=== PATIENT | female | born 1945 | race Hispanic/Latino ===

== ENCOUNTER 2018-09-29 08:35 | Inpatient (IN) | payer MEDICARE ==
[~2018-09-29] VITALS: Ht 162.6 cm; Wt 108.4 kg
[2018-09-29] MEDS ORDERED: PIPER-TAZ 3.375 GM 50 ML IV ONE (09:15)
[2018-09-29] MEDS ORDERED: VANCOMYCIN 1GM/NS 250 ML 250 ML IV ONE (09:15)
[2018-09-29 09:44] LABS: BASOPHILS % 0.4 % (0.0-1.0); EOSINOPHILS # (AUTO) 0.3 (0.0-0.4); EOSINOPHILS % 3.8 % (0.0-6.0); HEMATOCRIT 37.9 % (34.2-44.1); HEMOGLOBIN 13.1 g/dL (12.0-16.0); LYMPHOCYTES # (AUTO) 1.8 (1.0-3.2); MEAN CORPUSCULAR HEMOGLOBIN 28.7 pg (28-32); MEAN CORPUSCULAR HGB CONC 34.6 g/dL (31-35); MEAN CORPUSCULAR VOLUME 83.1 fL (81-99); MONOCYTES # (AUTO) 0.7 (0.2-0.8); MONOCYTES % 9.2 % (4.4-11.3); NEUTROPHILS # (AUTO) 4.9 (2.1-6.9); NEUTROPHILS % 63.3 % (38.7-80.0); PLATELET COUNT 138 x10e3/uL (140-360); RED BLOOD COUNT 4.56 x10e6/uL (3.6-5.1); RED CELL DISTRIBUTION WIDTH 12.5 % (11.7-14.4)
[2018-09-29 09:48] LABS: INR 0.95; PROTHROMBIN TIME 13.2 seconds (11.9-14.5)
[2018-09-29 09:49] LABS: PARTIAL THROMBOPLASTIN TIME 30.2 seconds (23.8-35.5)
--- NOTE | 2018-09-29 09:58 | Diagnostic Imaging Report ---
EXAM: CHEST SINGLE (PORTABLE), AP Portable DATE: 09/29/2018 Time stamp on exam: 9:40 AM INDICATION: Diabetes with leg swelling COMPARISON: None FINDINGS: LINES/TUBES: None LUNGS: No consolidations or edema. PLEURA: No effusions or pneumothorax. HEART AND MEDIASTINUM: Normal size and contour. BONES AND SOFT TISSUES: No acute findings. IMPRESSION: No acute thoracic abnormality. Signed by: Dr. Jung Galdamez DO on 09/29/2018 9:55 AM
[2018-09-29 10:03] LABS: ALANINE AMINOTRANSFERASE 15 IU/L (0-55); ALBUMIN 3.8 g/dL (3.5-5.0); ALBUMIN/GLOBULIN RATIO 0.9 (0.8-2.0); ALKALINE PHOSPHATASE 89 IU/L (40-150); ANION GAP 12.7 mmol/L (8-16); BLOOD UREA NITROGEN 18 mg/dL (7-26); BUN/CREATININE RATIO 17 (6-25); CALCIUM 9.5 mg/dL (8.4-10.2); CARBON DIOXIDE 29 mmol/L (22-29); CHLORIDE 97 mmol/L (98-107); CREATINE KINASE 45 IU/L (29-168); CREATININE, SERUM 1.04 mg/dL (0.57-1.11); EST GLOMERULAR FILTRATION RATE 52 ML/MIN (60-); GLUCOSE 242 mg/dL (74-118); MAGNESIUM 2.3 MG/DL (1.3-2.1); POTASSIUM 3.7 mmol/L (3.5-5.1); SODIUM 135 mmol/L (136-145)
--- NOTE | 2018-09-29 10:04 | Diagnostic Imaging Report ---
Exam: Left tib-fib and foot series; 3 views each dated 09/29/2018 History: Swelling Comparison: None available Findings: Left tib-fib shows bony osteopenia. No fracture is identified. Soft tissue swelling and prominence is present. Benign-appearing distal tibial bone infarct is present. Left foot series shows diffuse bony osteopenia. Degenerative changes involving the calcaneus with spurring is present. There is partial talo-calcaneal fusion. Erosion of the distal first and second phalanx is present. Old fracture of the distal fourth metatarsal. Impression: Diffuse bony osteopenia with degenerative changes. Erosions of the distal phalanx of the first and second toes. Signed by: Dr. Jung Galdamez DO on 09/29/2018 10:01 AM
[2018-09-29] MEDS ORDERED: SODIUM CHLORIDE 0.9% 1000ML 1,000 ML IV ONE (10:45)
[2018-09-29] MEDS ORDERED: ONDANSETRON HCL INJ 2MG/ML 2ML 2 MG/ML VIAL IV PRN (10:45)
[2018-09-29] MEDS ORDERED: DEXTROSE 50% SYRINGE 50 ML IV PRN (10:45)
--- OUTSIDE RECORDS SUMMARY | 2018-09-29 10:48 | XMS REPORT ---
Author [facility] Address Unknown Phone Unavailable Care Team Providers Care [employer] Tech Name Role Phone Jose CONTRERAS Unavailable Unavailable Problems This patient has no known problems. Allergies, Adverse Reactions, Alerts This patient has no known allergies or adverse reactions. Medications This patient has no known medications. Results Test Description Test Time Test Comments Text Results Atomic Results Result Comments FOOT LEFT COMPLETE 2018-09-29 09:57:00 [place] [address] Patient Name: LINH ROWE MR #: [id number] : 1945 Age/Sex: 73/F Req #: [id number] Adm Physician: Ordered by: DEMETRIUS CONTRERAS MD Report #: [id number] Location: ER Room/Bed: Procedure: [id number] DX/FOOT LEFT COMPLETE Exam Date: 09/29/18 Exam Time: 0940 REPORT STATUS: Signed Exam: Left tib-fib and foot series; 3 views each dated 09/02 History: Swelling Comparison: None available Findings: Left tib-fib shows bony osteopenia. No fracture is identified. Soft tissue swelling and prominence is present. Benign-appearing distal tibial bone infarct is present. Left foot series shows diffuse bony osteopenia. Degenerative changes involving the calcaneus with spurring is present. There is partial talo-calcaneal fusion. Erosion of the distal first and second phalanx is present. Old fracture of the distal fourth metatarsal. Impression: Diffuse bony osteopenia with degenerative changes. Erosions of the distal phalanx of the first and second toes. Signed by: Dr. Belle Galdamez DO on 09/29/2018 10:01 AM Dictated By: BELLE GALDAMEZ DO 1001 Transcribed By: KANG on 09/29/18 1001 COPY TO: DEMETRIUS CONTRERAS MD LOWER LEG LEFT 2018-09-29 09:57:00 [place] [address] Patient Name: LINH ROWE MR #: [id number] : 1945 Age/Sex: 73/F Req #: [id number] Adm Physician: Ordered by: DEMETRIUS CONTRERAS MD Report #: [id number] Location: ER Room/Bed: Procedure: [id number] DX/LOWER LEG LEFT Exam Date: 09/29/18 Exam Time: 0940 REPORT STATUS: Signed Exam: Left tib-fib and foot series; 3 views each dated 09/30/19 History: Swelling Comparison: None available Findings: Left tib-fib shows bony osteopenia. No fracture is identified. Soft tissue swelling and prominence is present. Benign-appearing distal tibial bone infarct is present. Left foot series shows diffuse bony osteopenia. Degenerative changes involving the calcaneus with spurring is present. There is partial talo-calcaneal fusion. Erosion of the distal first and second phalanx is present. Old fracture of the distal fourth metatarsal. Impression: Diffuse bony osteopenia with degenerative changes. Erosions of the distal phalanx of the first and second toes. Signed by: Dr. Belle Galdamez DO on 09/29/2018 10:01 AM Dictated By: BELLE GALDAMEZ DO 100 Transcribed By: KANG on 09/29/18 100 COPY TO: DEMETRIUS CONTRERAS MD CHEST SINGLE (PORTABLE) 2018-09-29 09:54:00 [place] [address] Patient Name: LINH ROWE MR #: [id number] : 1945 Age/Sex: 73/F Req #: [id number] Adm Physician: Ordered by: DEMETRIUS CONTRERAS MD Report #: [id number] Location: ER Room/Bed: Procedure: [id number] DX/CHEST SINGLE (PORTABLE) Exam Date: 09/29/18 Exam Time: 939 REPORT STATUS: Signed EXAM: CHEST SINGLE (PORTABLE), AP Portable DATE: Time stamp on exam: 9:40 AM INDICATION: Diabetes with leg swelling COMPARISON: None FINDINGS: LINES/TUBES: None LUNGS: No consolidations or edema. PLEURA: No effusions or pneumothorax. HEART AND MEDIASTINUM: Normal size and contour. BONES AND SOFT TISSUES: No acute findings. IMPRESSION: No acute thoracic abnormality. Signed by: Dr. Belle Galdamez DO on 09/29/2018 9:55 AM Dictated By: BELLE GALDAMEZ DO 4 Transcribed By: KANG on 09/29/18954 COPY TO: DEMETRIUS CONTRERAS MD
[2018-09-29] MEDS ORDERED: TETANUS/DIPHTHERIA TOX ADULT 0.5 ML SYR IM ONE (11:00)
[2018-09-29 11:10] LABS: CLARITY,URINE CLEAR (CLEAR); COLOR,URINE YELLOW (YELLOW)
[2018-09-29 11:11] LABS: BILIRUBIN,URINE NEGATIVE (NEGATIVE); KETONES,URINE NEGATIVE (NEGATIVE); LEUKOCYTE ESTERASE ,URINE NEGATIVE (NEGATIVE); NITRITE,URINE NEGATIVE (NEGATIVE); PROTEIN,URINE DIPSTICK TRACE (NEGATIVE); URINE UROBILINOGEN 0.2 mg/dL (0.2 - 1)
[2018-09-29 11:41] LABS: BACTERIA,URINE RARE /HPF; EPITHELIAL CELLS,URINE RARE /LPF; RBC,URINE 0-5 /HPF (0-5)
[2018-09-29] MEDS ORDERED: LEVEMIR100 UNIT/1 SQ (12:31)
[2018-09-29] MEDS ORDERED: AMLODIPINE BESY10 MG PO (12:31)
[2018-09-29] MEDS ORDERED: COZAAR100 MG PO (12:31)
[2018-09-29] MEDS: INSULIN LISPRO 100 UNIT/1 ML 3ML VIAL SQ SCH ×3 (12:41→21:10)
[2018-09-29] MEDS: ENOXAPARIN SODIUM INJ 100 MG/ML SYR SC SCH ×2 (12:41→21:09)
[2018-09-29 14:05] VITALS: BP 146/66
--- NOTE | 2018-09-29 14:05 | NUR ---
RECEIVED PATIENT FROM ER AT 1353, SHE IS IN STABLE CONDITION. ADMISSION HX AND INITIAL PHYSICAL ASSESSMENT COMPLETED AND DOCUMENTED. PATIENT ORIENTED TO ROOM AND POLICIES. CALL LIGHT WITHIN REACH. BED IN THE LOWEST POSITION.
[2018-09-29 14:11] VITALS: BP 146/66
[2018-09-29 14:20] VITALS: BP 146/66
--- NOTE | 2018-09-29 14:27 | NUR ---
H&P cc: leg swelling and pain HPI: 73yoF, PCP , developed left leg swelling and pain. PMH: DM2, HTN, PAD s/p stent to right leg s/p right BKA, PSHx: right leg stent, right BKA, csec x3; cholecystectomy, hysterectomy Allergies; see emr FH/SH: single; no etoh/cigs/illicits MEd;s see MAR ROS: no cp/sob/dizziness/vision changes/skin rash/back pain/GARBER v/s: rev'd PE: tired appearing anicteric ns1s2 mod bs soft nt nd right BKA left foreleg erythematous/edematous/tender/warm; chronic changes of great toe skin dry flat affect A&OX3; whitaker labs/meds; revd A/P: 73yoF Cellulitis of left leg DM2 HTN PAD PLAN IV abx U/S of leg lovenox cardio eval hab1c/LDL 10.3/129 ADA diet ppi on AC Miguel Giron MD, PhD
--- NOTE | 2018-09-29 14:30 | NUR ---
DR. RICE ROUNDING ON PATIENT. PER MD DON'T GIVE FLUID ORDER DUE TO PATIENT HAVING LLE +4 EDEMA.
[2018-09-29] MEDS ORDERED: PNEUMOCOCCAL VACCINE POLYVALENT 23 MCG/0.5 ML VIAL IM SCH (14:41)
[2018-09-29] MEDS ORDERED: SODIUM CHLORIDE 0.9% 250ML 250 ML ONE (15:23)
[2018-09-29] MEDS: PIPER-TAZ 3.375 GM 50 ML IV SCH ×2 (15:38→21:09)
[2018-09-29] MEDS: ACETAMINOPHEN 325 MG TAB PO PRN (15:38)
[2018-09-29 15:56] VITALS: BP 142/63
--- NOTE | 2018-09-29 19:28 | NUR ---
REPORT GIVEN TO ONCOMING NURSE, WALKING ROUNDS DONE. PATIENT IS IN STABLE CONDITION, NO ACUTE DISTRESS NOTED. CALL LIGHT WITHIN REACH. BED IN THE LOWEST POSITION.
--- NOTE | 2018-09-29 19:48 | NUR ---
PT IS RESTING IN BED. NO RESPIRATORY DISTRESS NOTED. BED IN THE LOWEST POSITION, LOCKED, AND CALL LIGHT WITHIN REACH. WILL CONTINUE TO MONITOR.
[2018-09-29 20:00] VITALS: BP 143/60
[2018-09-29] MEDS ORDERED: PNEUMOCOCCAL VACCINE POLYVALENT 23 MCG/0.5 ML VIAL IM NR (20:00)
[2018-09-29] MEDS ORDERED: VANCOMYCIN 750MG/NS 150ML IVPB 150 ML IV SCH (21:00)
[2018-09-30] VITALS (9 sets, daily range): BP systolic 140–170; BP diastolic 55–73
[2018-09-30] MEDS: PIPER-TAZ 3.375 GM 50 ML IV SCH ×4 (02:28→21:55)
--- NOTE | 2018-09-30 07:06 | NUR ---
RECEIVED PATIENT RESTING IN BED. NO ACUTE DISTRESS NOTED. NO S/S OF PAIN NOTED. CALL LIGHT WITHIN REACH. BED IN THE LOWEST POSITION.
[2018-09-30 07:09] LABS: BASOPHILS % 0.7 % (0.0-1.0); EOSINOPHILS # (AUTO) 0.4 (0.0-0.4); EOSINOPHILS % 7.5 % (0.0-6.0); HEMATOCRIT 34.7 % (34.2-44.1); HEMOGLOBIN 11.3 g/dL (12.0-16.0); LYMPHOCYTES # (AUTO) 1.4 (1.0-3.2); LYMPHOCYTES % 25.2 % (18.0-39.1); MEAN CORPUSCULAR HEMOGLOBIN 27.9 pg (28-32); MEAN CORPUSCULAR HGB CONC 32.6 g/dL (31-35); MEAN CORPUSCULAR VOLUME 85.7 fL (81-99); MONOCYTES # (AUTO) 0.7 (0.2-0.8); MONOCYTES % 12.7 % (4.4-11.3); NEUTROPHILS % 53.5 % (38.7-80.0); PLATELET COUNT 125 x10e3/uL (140-360); RED BLOOD COUNT 4.05 x10e6/uL (3.6-5.1); RED CELL DISTRIBUTION WIDTH 12.7 % (11.7-14.4)
[2018-09-30 07:29] LABS: ALBUMIN 2.9 g/dL (3.5-5.0); ALBUMIN/GLOBULIN RATIO 0.8 (0.8-2.0); ANION GAP 11.4 mmol/L (8-16); CALCIUM 8.5 mg/dL (8.4-10.2); CREATININE, SERUM 1.14 mg/dL (0.57-1.11); POTASSIUM 3.4 mmol/L (3.5-5.1)
--- NOTE | 2018-09-30 07:37 | NUR ---
IM- Progress note o/N no events ROS: no cp/sob/dizziness/vision changes/skin rash/back pain/GARBER v/s: rev'd PE: tired appearing anicteric ns1s2 mod bs soft nt nd right BKA left foreleg erythematous/edematous/tender/warm; chronic changes of great toe skin dry flat affect A&OX3; whitaker labs/meds; revd A/P: 73yoF Cellulitis of left leg DM2 HTN PAD PLAN IV abx U/S of leg lovenox cardio eval hab1c/LDL 10.3/129 ADA diet ppi on AC 09/30 Uncontrolled DM2; CLEMENTINA - d/c losartan; and Hypokalemia- replace; ; Obesity BMI 35.4 Miguel Giron MD, PhD
[2018-09-30] MEDS ORDERED: POTASSIUM CHLORIDE 20 MEQ TAB CR PO NR (08:00)
[2018-09-30] MEDS: INSULIN GLARGINE 100 UNITS/ML VIAL SQ SCH (08:02)
[2018-09-30] MEDS: INSULIN LISPRO 100 UNIT/1 ML 3ML VIAL SQ SCH ×4 (08:04→21:00)
[2018-09-30] MEDS: ENOXAPARIN SODIUM INJ 100 MG/ML SYR SC SCH ×2 (08:09→21:55)
[2018-09-30] MEDS: AMLODIPINE BESYLATE 10 MG TAB PO SCH (08:09)
[2018-09-30] MEDS ORDERED: LOSARTAN POTASSIUM 100 MG TAB PO SCH (09:00)
[2018-09-30] MEDS ORDERED: PNEUMOCOCCAL VACCINE POLYVALENT 23 MCG/0.5 ML VIAL IM NR (09:00)
--- NOTE | 2018-09-30 14:33 | NUR ---
WOUND CARE CONSULTATION - INITIAL EVALUATION Patient admitted from home to ER for cellulitis of LLE with onset of Swelling, Redness. WBC5.6 HGB11.3 HCT34.7 NEUT%53.5 HJY864 FyT5u44.3 Alb 2.9 LLE Venous Study - Left Popliteal - Totally Occluded - Left Common Femoral - Totally Occluded - Left Great Saphenous Vein Upper Leg - Totally Occluded - Left Femoral Vein - Totally Occluded. Left Foot X-Ray - - Diffuse Osteopenia with degenerative changes. Erosion of 1st & 2nd Toes. WC Consulted for Evaluation of LLE Ulcers and Recommendation PATIENT VISIT: Patient Calm and Cooperative, In good Spirits, AAOX4. Right BKA- Stable/ Healed incision. No Edema to RLE. LLE Anterior -multiple open ulcers over area of 15cm x 10cm weeping serous fluid moderate. Edema to LLE +4, shiny, taught and reddened. Left Hallux - DFU grade 1- stable scarring. No drainage, no redness, Stable and open to air. Nakul Score 18 Moderate PUP Active Uses Prosthesis to GOOB. Left Foot Heel Protector in place. Dr. Jon in to see patient and explained procedure to patient for vascular workup. Patient agreeable to procedure. IMPRESSION: 1. Left Lower Leg - Venous Stasis Ulcers. 2. Left Foot Hallux - DFU grade 1- Stable RECOMMENDATION: ( Patient awaiting vascular workup for total occlusion DVT of LLE) Conservative: 1. Left Lower Leg - Venous Stasis Ulcers - - Cleanse area with Hibiclens Soap and Normal Saline with 4x4 gauze then Pat Dry Thoroughly - Apply Xeroform Single Layer and Cover with ABD pad and secure with Kerlix Daily. 2. Continue Moderate PUP Protocol. 3. Continue alternating Pressure air Mattress and set to patient current weight 4. Continue Left Foot Heel Protector while in bed. 5. Encourage Patient to turn and reposition every 2 hours. Addendum: 09/30/18 at 1451 by Jonny Pisano RN Amended: Links added.
[2018-09-30] MEDS: DOCUSATE SODIUM 100 MG CAP PO SCH (16:21)
[2018-09-30] MEDS: SENNA-S TABLET PO SCH (16:21)
--- NOTE | 2018-09-30 17:11 | NUR ---
PATIENT REQUESTING ENEMA, PER DR. RICE ORDER SOAP SUDS ENEMA. PER PATIENT SHE WILL LIKE TO GET IT BEFORE BEDTIME TONIGHT.
--- NOTE | 2018-09-30 19:25 | NUR ---
REPORT GIVEN TO ONCOMING NURSE. PATIENT IS IN RESTING IN BED. NO ACUTE DISTRESS NOTED. NO S/S OF PAIN NOTED. CALL LIGHT WITHIN REACH. BED IN THE LOWEST POSITION.
--- NOTE | 2018-09-30 19:54 | NUR ---
PT IS RESTING IN BED. NO RESPIRATORY DISTRESS NOTED. BED IN THE LOWEST POSITION, LOCKED, AND CALL LIGHT WITHIN REACH. WILL CONTINUE TO MONITOR.
[2018-09-30] MEDS: VANCOMYCIN 750MG/NS 150ML IVPB 150 ML IV SCH (21:00)
[2018-10-01] VITALS (22 sets, daily range): BP systolic 87–173; BP diastolic 31–78
--- NOTE | 2018-10-01 01:01 | Consultation ---
DATE OF CONSULTATION: 09/30/2018 Cardiology consultation. REASON FOR CONSULTATION: DVT. HISTORY OF PRESENT ILLNESS: This is a 73-year-old woman with a history of peripheral arterial disease, status post multiple interventions leading to a right jybpz-oxg-fznp amputation, hypertension, diabetes mellitus, hyperlipidemia, who presented to the emergency department with lower extremity swelling, wound with weeping sores. Vascular ultrasound showed extensive deep venous thrombosis. We have been consulted. REVIEW OF SYSTEMS: A 12-point review of system was conducted, is negative otherwise as stated above in the HPI. PAST MEDICAL HISTORY: As stated above in the HPI. PAST SURGICAL HISTORY: Right BKA. FAMILY HISTORY: No premature coronary artery disease or sudden cardiac . SOCIAL HISTORY: No illicit drug, alcohol, or tobacco use. ALLERGIES: NO KNOWN DRUG ALLERGIES. MEDICATIONS: See medications reconciliation form. PHYSICAL EXAMINATION: VITAL SIGNS: Temperature is 98.3, heart rate is 75, respirations 18, blood pressure is 140/65, and oxygen saturation 100% on room air. GENERAL: Well-appearing, well-built, no apparent distress. Alert and oriented x3. HEAD: Normocephalic, atraumatic. EYES: Extraocular muscles are intact. Conjunctivae are clear. NECK: No JVD. No bruits. CARDIOVASCULAR: Regular rate and rhythm. No murmurs. LUNGS: Clear to auscultation bilaterally. No wheezing or rales. ABDOMEN: Soft, nontender, and nondistended. EXTREMITIES: Right BKA. Left extremity has weeping sores. 3+ edema. LABORATORY DATA: Reviewed. Cardiovascular medications are reviewed. She is on Lovenox 90 mg q.12 hours. IMPRESSION: 1. Extensive deep venous thrombosis of the left lower extremity. 2. Left lower extremity wound. 3. Hyperlipidemia. 4. Hypertension. 5. Diabetes mellitus. 6. Peripheral arterial disease, status post right occlg-qlp-tdmq amputation. RECOMMENDATIONS: The patient has one remaining limb, left lower extremity. She has extensive deep venous thrombosis with extensive edema and wounds. Continue anticoagulation. I feel the patient will benefit from venography and possible intervention to restore outflow from the left lower extremity. Please keep the patient n.p.o. after midnight for possible intervention tomorrow. DO IVONNE Lawler/MODL /[id number]
[2018-10-01] MEDS: HYDROCODONE/APAP 7.5MG-325MG 1 EA TAB PO PRN ×2 (02:19→17:30)
[2018-10-01] MEDS: PIPER-TAZ 3.375 GM 50 ML IV SCH ×4 (03:48→20:33)
--- NOTE | 2018-10-01 06:43 | NUR ---
PT IS RESTING IN BED. NO RESPIRATORY DISTRESS NOTED. NO ACUTE EVENT OCCURRED THROUGHOUT THE NIGHT. BED IN THE LOWEST POSITION, LOCKED, AND CALL LIGHT WITHIN REACH. REPORT GIVEN TO ONCOMING NURSE.
[2018-10-01] MEDS: INSULIN LISPRO 100 UNIT/1 ML 3ML VIAL SQ SCH ×4 (07:30→21:00)
--- NOTE | 2018-10-01 08:02 | NUR ---
IM- Progress note o/N no events ROS: no cp/sob/dizziness/vision changes/skin rash/back pain/GARBER v/s: rev'd PE: tired appearing anicteric ns1s2 mod bs soft nt nd right BKA left foreleg erythematous/edematous/tender/warm; chronic changes of great toe skin dry flat affect A&OX3; whitakre labs/meds; revd A/P: 73yoF Cellulitis of left leg DM2 HTN PAD PLAN IV abx U/S of leg lovenox cardio eval hab1c/LDL 10.3/129 ADA diet ppi on AC 09/30 Uncontrolled DM2; CLEMENTINA - d/c losartan; and Hypokalemia- replace; ; Obesity BMI 35.4 10/01 f/u vascular studies; check BMP Miguel Giron MD, PhD
[2018-10-01] MEDS: SENNA-S TABLET PO SCH ×2 (09:00→16:32)
[2018-10-01] MEDS: DOCUSATE SODIUM 100 MG CAP PO SCH ×2 (09:00→16:32)
[2018-10-01] MEDS: ENOXAPARIN SODIUM INJ 100 MG/ML SYR SC SCH ×2 (09:00→20:33)
[2018-10-01] MEDS: INSULIN GLARGINE 100 UNITS/ML VIAL SQ SCH (09:00)
[2018-10-01] MEDS: AMLODIPINE BESYLATE 10 MG TAB PO SCH (09:00)
--- NOTE | 2018-10-01 09:00 | NUR ---
Held wound treatment patient awaiting procedure.
[2018-10-01 10:28] LABS: ANION GAP 11.7 mmol/L (8-16); BLOOD UREA NITROGEN 13 mg/dL (7-26); BUN/CREATININE RATIO 15 (6-25); CARBON DIOXIDE 27 mmol/L (22-29); CHLORIDE 100 mmol/L (98-107); CREATININE, SERUM 0.87 mg/dL (0.57-1.11); EST GLOMERULAR FILTRATION RATE > 60 ML/MIN (60-); GLUCOSE 208 mg/dL (74-118); POTASSIUM 3.7 mmol/L (3.5-5.1); SODIUM 135 mmol/L (136-145)
--- NOTE | 2018-10-01 10:36 | NUR ---
Spoke with Dr. Fina Jon made aware of patient's blood pressure 160/58 HR69, received orders to continue holding Po blood pressure medications, since she she will be under sedation for procedure, no IV blood pressure medications ordered
[2018-10-01] MEDS ORDERED: IOPAMIDOL 300MG/ML 100 ML INFUS..BTL IV ONE (11:37)
[2018-10-01] MEDS ORDERED: SODIUM CHLORIDE 0.9% 1000ML 1,000 ML ONE (11:37)
[2018-10-01] MEDS ORDERED: LIDOCAINE HCL 2% LOCAL 20 ML VIAL ONE ×2 (11:37→13:00)
[2018-10-01] MEDS ORDERED: FENTANYL CITRATE/PF 100MCG/2 ML INJ ONE (11:37)
[2018-10-01] MEDS ORDERED: MIDAZOLAM HCL 2 MG/2 ML VIAL ONE (11:37)
[2018-10-01] MEDS ORDERED: HEPARIN SOD/SOD CHLORIDE 2,000 ML ONE (11:37)
[2018-10-01] MEDS ORDERED: ALTEPLASE RECOMBINANT 2 MG/2 ML VIAL ONE (13:27)
[2018-10-01] MEDS ORDERED: HEPARIN 25,000U/0.45% NS 250ML 250 ML IV ONE (13:28)
[2018-10-01] MEDS ORDERED: SODIUM CHLORIDE 0.9% 50ML 0 ML ONE (13:35)
[2018-10-01] MEDS: HEPARIN 25,000 UNIT/D5W 250ML 250 ML IV SCH (13:45)
[2018-10-01] MEDS: ALTEPLASE RECOMBINANT IV SCH ×3 (14:00→22:01)
[2018-10-01] MEDS: SODIUM CHLORIDE 0.9% IV SCH ×3 (14:00→22:01)
--- NOTE | 2018-10-01 14:16 | NUR ---
1416 Received pt form label pinker Rm #[id number] (from rm #[id number])Handoff Higinio MATHEWS .Left leg with 7fr cath placed per DR Jon for thrombolysis via infusion TPA at 17cchr and Heparin 500cc/hr. Left 18g iv clamped. Site w/o s/s infiltration. No signs of gross pain,pallor or dysrhythmia. Left foot with DP/PT Doppler only. Rt BKA intact. Baum in place for clear urine to BSD approx 250cc in bag. Abd soft and non tender denies necessity to defecate . 1500 phone verbal report to Shawn Sylvester RN assist with zoll transport and bed to ICU stable vs denies c/o except hungry. PO H20 tolerated well. Handoff face to face included review of orders and to return to label pinker tomorrow afternoon for fix in label pinker Iv drips to continue continuously. Left to ICU bedside care NO gross signs of pain,pallor,bleeding in NSR. Bed in low position,side rails up, call light at bedside with brakes on bed and Ekg with sat monitoring placed by ICU staff. maricarmen/rn
--- NOTE | 2018-10-01 15:58 | NUR ---
Bedside handoff report to nurse Lashae RN made aware unable to change dressing to left calf due to surgical procedure.
[2018-10-01] MEDS: VANCOMYCIN 750MG/NS 150ML IVPB 150 ML IV SCH (20:33)
[2018-10-01 21:12] LABS: PARTIAL THROMBOPLASTIN TIME 54.5 seconds (23.8-35.5)
--- NOTE | 2018-10-01 21:51 | Progress Note ---
DATE: 10/01/2018 Cardiology Progress Note SUBJECTIVE: The patient is feeling overall somewhat better. Reports left lower extremity pain. OBJECTIVE: VITAL SIGNS: Temperature is 96.3, heart rate is 75, respirations 17, blood pressure is 136/71, and oxygen saturation 96% on room air. GENERAL: Well-appearing, well-built, in no apparent distress. CARDIOVASCULAR: Regular rate and rhythm. LUNGS: Clear to auscultation. ABDOMEN: Soft and nontender. EXTREMITIES: Right BKA, left has significant swelling. CARDIOVASCULAR MEDICATIONS: Reviewed. LABORATORY DATA: Reviewed. Venography today revealed significant thrombus burden seen throughout the femoral and iliac venous systems of the left lower extremity. IMPRESSION: 1. Extensive left lower extremity deep venous thrombosis involving the femoral and iliac vessels. 2. Left lower extremity wound. 3. Hyperlipidemia. 4. Hypertension. 5. Obesity. 6. Diabetes mellitus. 7. Peripheral arterial disease, status post right ecjlj-jcl-axuz amputation. RECOMMENDATIONS: Venography today revealed significant thrombus burden throughout the femoral and iliac vessels. I placed a 40 cm working length Satinder infusion catheter. She will undergo alteplase infusion at 1 mg/hour until tomorrow afternoon. She also received heparin at 500 units per the sheath. Continue to hold Lovenox for now. DO IVONNE Lawlre/MODL /[id number]
[2018-10-02] VITALS (25 sets, daily range): BP systolic 105–152; BP diastolic 33–89
[2018-10-02 00:36] LABS: PARTIAL THROMBOPLASTIN TIME 95.9 seconds (23.8-35.5)
--- NOTE | 2018-10-02 01:33 | Operative Report ---
DATE OF PROCEDURE: 10/01/2018 SURGEON: Ignacio Jon DO PROCEDURES PERFORMED: 1. Ultrasound-guided popliteal venous access. 2. Second order catheter placement and venography. 3. Transcatheter lysis. 4. Conscious sedation, 30 minutes. PREPROCEDURE DIAGNOSIS: Deep venous thrombosis. POSTPROCEDURE DIAGNOSIS: Deep venous thrombosis. ESTIMATED BLOOD LOSS: Less than 20 mL. SPECIMENS REMOVED: None. PROCEDURE IN DETAIL: After informed consent was obtained, the patient was brought to the cardiac catheterization laboratory in a fasting and nonsedated state. The patient was placed prone on the laboratory technology teacher table. The left popliteal area was prepped and draped in the usual sterile fashion. A 2% lidocaine was infiltrated over the left popliteal area for local anesthesia. Using ultrasound guidance, the popliteal vein was entered with a micropuncture catheter and a 7-Armenian sheath was placed. Next, utilizing a multipurpose catheter, an Advantage wire was taken into the inferior vena cava. This catheter was then advanced into the inferior vena cava and venography was performed. Next, the wire was reinserted and I placed a 40 cm working catheter and infused 2 mg of alteplase within the laboratory technology teacher. Venography prior to this through the sheath showed extensive thrombus burden throughout the femoral and iliac vessels. IMPRESSION: Extensive deep venous thrombosis. RECOMMENDATIONS: Continue alteplase at 1 mg/hour throughout the night until tomorrow afternoon. A 500 units of heparin through the sheath. We will bring her back to the cardiac catheterization laboratory for reimaging. Ignacio Jon DO BM/MODL /[id number]
[2018-10-02] MEDS: ALTEPLASE RECOMBINANT IV SCH ×3 (04:01→18:00)
[2018-10-02] MEDS: PIPER-TAZ 3.375 GM 50 ML IV SCH ×4 (04:01→21:30)
[2018-10-02] MEDS: SODIUM CHLORIDE 0.9% IV SCH ×3 (04:01→18:00)
[2018-10-02 05:03] LABS: PARTIAL THROMBOPLASTIN TIME 92.3 seconds (23.8-35.5)
--- NOTE | 2018-10-02 05:50 | NUR ---
IM- Progress note o/N no events ROS: no cp/sob/dizziness/vision changes/skin rash/back pain/GARBER v/s: rev'd PE: tired appearing anicteric ns1s2 mod bs soft nt nd right BKA left foreleg erythematous/edematous/tender/warm; chronic changes of great toe skin dry flat affect A&OX3; whitaker labs/meds; revd A/P: 73yoF Cellulitis of left leg DM2 HTN PAD PLAN IV abx U/S of leg lovenox cardio eval hab1c/LDL 10.3/129 ADA diet ppi on AC 09/30 Uncontrolled DM2; CLEMENTINA - d/c losartan; and Hypokalemia- replace; ; Obesity BMI 35.4 5/ f/u vascular studies; check BMP 5/ s/p venogram; alteplase/heparin infusion; heavy load left leg thrombus. 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 Miguel Giron MD, PhD
--- NOTE | 2018-10-02 06:15 | NUR ---
Dr Giron here for morning rounds, no new orders received
[2018-10-02] MEDS: INSULIN LISPRO 100 UNIT/1 ML 3ML VIAL SQ SCH ×4 (07:56→21:00)
[2018-10-02] MEDS: ENOXAPARIN SODIUM INJ 100 MG/ML SYR SC SCH ×2 (08:01→21:30)
[2018-10-02] MEDS: SENNA-S TABLET PO SCH ×2 (08:01→17:00)
[2018-10-02] MEDS: DOCUSATE SODIUM 100 MG CAP PO SCH ×2 (08:01→17:00)
[2018-10-02] MEDS: AMLODIPINE BESYLATE 10 MG TAB PO SCH (08:01)
[2018-10-02] MEDS: INSULIN GLARGINE 100 UNITS/ML VIAL SQ SCH (08:02)
[2018-10-02] MEDS: HYDROCODONE/APAP 7.5MG-325MG 1 EA TAB PO PRN ×2 (11:35→21:33)
[2018-10-02] MEDS: HEPARIN 25,000 UNIT/D5W 250ML 250 ML IV SCH (13:45)
[2018-10-02] MEDS ORDERED: MIDAZOLAM HCL 2 MG/2 ML VIAL ONE ×2 (17:36→19:14)
[2018-10-02] MEDS ORDERED: HEPARIN SOD (PORCINE) 1000 UNIT/ML 30ML ONE (17:36)
[2018-10-02] MEDS ORDERED: ALTEPLASE RECOMBINANT 2 MG/2 ML VIAL ONE (17:37)
[2018-10-02] MEDS ORDERED: FENTANYL CITRATE/PF 100MCG/2 ML INJ ONE (17:37)
[2018-10-02] MEDS ORDERED: SODIUM CHLORIDE 0.9% 100 ML 0 ML ONE (17:37)
[2018-10-02] MEDS ORDERED: HEPARIN SOD/SOD CHLORIDE 1,000 ML ONE ×2 (17:39→18:40)
[2018-10-02] MEDS ORDERED: SODIUM CHLORIDE 0.9% 1000ML 1,000 ML ONE (17:39)
[2018-10-02] MEDS ORDERED: LIDOCAINE HCL 2% LOCAL 20 ML VIAL ONE ×2 (17:39→18:40)
[2018-10-02] MEDS ORDERED: IOPAMIDOL 300MG/ML 100 ML INFUS..BTL IV ONE (17:40)
--- NOTE | 2018-10-02 19:45 | NUR ---
Report provided to Pamella MATHEWS, review of procedural findings and medications given. Patient drowsy, easily aroused. maintains airway and room air saturations of 98-99%. No gross issues of pressure, pain, pallor or dysrhythmia. IV site patent with saline lock to left AC. patient hemodynamically stable with hemostasis. right neck dressing CDI w/o s/s of bleeding. patient transferred to bed max assist w/o incident. Overall skin integrity remains intact. sheath to left posterior popliteal transported to ICU 190 - cgf procedure: SP removal of mcnamare catheter, IVC venous angiography, right IJ IVC filter placement Sheath puller: Dr Jon Meds Given Intra-Procedure Sedatives Versed - 3 mg Fentanyl - 75 mcg Anticoagulants TPA /HEPARIN DC'd at beginning of procedure Fluids Input - 250ml Output (klein) - 150 Contrast Isovue 300 - [id number] Other Meds NA
--- NOTE | 2018-10-02 19:58 | NUR ---
Received from laborer hoisting via bed, AAOx3, no c/o pain. Sheathe remains in place to left polpliteal area.
--- NOTE | 2018-10-02 20:15 | NUR ---
Call placed for Dr. Jon to clarify status of left polpliteal sheathe, spoke with Dr. Almeida. He will contact Dr. Jon and then contact us with orders
--- NOTE | 2018-10-02 20:37 | Operative Report ---
DATE OF PROCEDURE: 10/02/2018 SURGEON: Ignacio Jon DO PROCEDURES PERFORMED: 1. Conscious sedation, 1 hour. 2. Second order catheter placement and venography of the left lower extremity. 3. Ultrasound-guided inferior vena cava filter placement from the right internal jugular approach. PREPROCEDURE DIAGNOSIS: Extensive left lower extremity deep venous thrombosis. POSTPROCEDURE DIAGNOSIS: Extensive left lower extremity deep venous thrombosis. ESTIMATED BLOOD LOSS: Less than 20 mL. SPECIMENS REMOVED: None. PROCEDURE IN DETAIL: After informed consent was obtained, the patient was brought to the cardiac catheterization laboratory in a fasting and nonsedated state. The patient was placed prone on the table. Her previous left popliteal sheath was exchanged out for a new 7-Senegalese sheath. Venography revealed significant improvement of her thrombus burden throughout the femoral and iliac systems. A catheter was taken up and over the second order position and venography revealed a large globular thrombus that appeared to be well organized at the left common iliac vein prior to the flow into the inferior vena cava. This was extensive and almost occluding the iliac vein. Decision was made to not intervene on this due to high risk of embolization and causing a pulmonary embolism. Next, we flipped the patient over and the right neck was prepped and draped in the usual fashion. A 2% lidocaine was instilled over the right anterior neck for local anesthesia. Using ultrasound guidance, the right internal jugular vein was accessed via modified Seldinger technique using a micropuncture kit and placement of a 5-Senegalese sheath. Next, a multipurpose catheter and Advantage wire were used to navigate and insert the Advantage wire into the inferior vena cava distally. Next, [place] inferior vena cava sheath was placed in the infrarenal position and venography images were performed. The renal veins were delineated. [place] IVC filter was deployed in the usual manner. Sheath was removed and hemostasis was achieved via manual pressure. The patient tolerated the procedure well with no immediate complications and transported back to room in stable condition. IMPRESSION: 1. Improvement of the left lower extremity thrombus burden throughout the femoral and iliac system. 2. Extensive organized thrombus at the ostium of the left iliac vein. RECOMMENDATIONS: The patient underwent IVC filter placement to prevent embolism of the large organized thrombus in the left common iliac ostium. The patient will need to be brought back at a later time for potential Angiojet mechanical thrombectomy versus venoplasty. Continue anticoagulation. DO IVONNE Lawler/STEVE /[id number]
[2018-10-02] MEDS: VANCOMYCIN 750MG/NS 150ML IVPB 150 ML IV SCH (21:30)
--- NOTE | 2018-10-02 21:40 | NUR ---
no return call from Dr. Almeida, 2nd call placed and message left to clarify status of left popliteal sheathe and diet orders
[2018-10-03] VITALS (20 sets, daily range): BP systolic 118–157; BP diastolic 40–53
[2018-10-03] MEDS: PIPER-TAZ 3.375 GM 50 ML IV SCH ×4 (03:30→21:00)
--- NOTE | 2018-10-03 06:34 | NUR ---
IM- Progress note o/N no events ROS: no cp/sob/dizziness/vision changes/skin rash/back pain/GARBER v/s: rev'd PE: tired appearing anicteric ns1s2 mod bs soft nt nd right BKA left foreleg erythematous/edematous/tender/warm; chronic changes of great toe skin dry flat affect A&OX3; whitaker labs/meds; revd A/P: 73yoF Cellulitis of left leg DM2 HTN PAD PLAN IV abx U/S of leg lovenox cardio eval hab1c/LDL 10.3/129 ADA diet ppi on AC 09/30 Uncontrolled DM2; CLEMENTINA - d/c losartan; and Hypokalemia- replace; ; Obesity BMI 35.4 5/ f/u vascular studies; check BMP 5/ s/p venogram; alteplase/heparin infusion; heavy load left leg thrombus. 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 Miguel Giron MD, PhD
[2018-10-03] MEDS: INSULIN LISPRO 100 UNIT/1 ML 3ML VIAL SQ SCH ×4 (07:30→21:00)
--- NOTE | 2018-10-03 08:00 | NUR ---
[address]AGE ON WITH DR KAUR REGARDING VENOUS SHEATH IN PLACE ON LEFT POPITEAL AND AN ORDER FOR DIET.
[2018-10-03] MEDS: DOCUSATE SODIUM 100 MG CAP PO SCH ×2 (08:59→19:01)
[2018-10-03] MEDS: AMLODIPINE BESYLATE 10 MG TAB PO SCH (08:59)
[2018-10-03] MEDS: ENOXAPARIN SODIUM INJ 100 MG/ML SYR SC SCH ×2 (08:59→21:00)
[2018-10-03] MEDS: SENNA-S TABLET PO SCH ×2 (08:59→17:00)
[2018-10-03] MEDS: HYDROCODONE/APAP 7.5MG-325MG 1 EA TAB PO PRN ×2 (09:01→19:07)
[2018-10-03] MEDS: INSULIN GLARGINE 100 UNITS/ML VIAL SQ SCH (09:06)
--- NOTE | 2018-10-03 14:02 | NUR ---
SPOKE WITH DR KAUR REGARDING PLAN OF CARE. HE WILL BE TAKING PATIENT BACK TO SCREEN PRINTING INSPECTOR FOR PROCEDURE. TELEPHONE ORDER FOR CONSENT AND KEEP NPO. EXPLAINED TO PATIENT POC AND SHE REFUSES TO SIGN CONSENT UNTIL SHE SPEAKS WITH INJECTION MOLDING MACHINE OFFBEARER.
[2018-10-03] MEDS ORDERED: HEPARIN SOD (PORCINE) 1000 UNIT/ML 30ML ONE (15:49)
[2018-10-03] MEDS ORDERED: MIDAZOLAM HCL 2 MG/2 ML VIAL ONE (15:50)
[2018-10-03] MEDS ORDERED: ALTEPLASE RECOMBINANT 2 MG/2 ML VIAL ONE (15:50)
[2018-10-03] MEDS ORDERED: SODIUM CHLORIDE 0.9% 100 ML 100 ML ONE (15:50)
[2018-10-03] MEDS ORDERED: FENTANYL CITRATE/PF 100MCG/2 ML INJ ONE (15:50)
[2018-10-03] MEDS ORDERED: IOPAMIDOL 300MG/ML 100 ML INFUS..BTL IV ONE (15:51)
[2018-10-03] MEDS ORDERED: LIDOCAINE HCL 2% LOCAL 20 ML VIAL ONE (15:51)
[2018-10-03] MEDS ORDERED: HEPARIN SOD/SOD CHLORIDE 2,000 ML ONE (15:51)
[2018-10-03] MEDS ORDERED: SODIUM CHLORIDE 0.9% 1000ML 2,000 ML ONE (15:51)
[2018-10-03] MEDS ORDERED: ATROPINE SULFATE 0.1 MG/ML 10ML SYR ONE (17:25)
[2018-10-03] MEDS ORDERED: ALTEPLASE RECOMBINANT 2 MG/2 ML VIAL IV ONE (17:25)
[2018-10-03] MEDS ORDERED: HYDRALAZINE HCL 20 MG/ML VIAL ONE (18:00)
--- NOTE | 2018-10-03 18:21 | NUR ---
Report provided to Jing MATHEWS, review of procedural findings and medications given. Patient drowsy, easily aroused. maintains airway and room air saturations of 98-996%. No gross issues of pressure, pain, pallor or dysrhythmia. IV site patent with NS 0.9% at KVO by dial-flow. patient hemodynamically stable with hemostasis. right posterior popliteal CDI w/o s/s of bleeding. patient transferred to stretcher under own strength from prone position w/o incident. Overall skin integrity remains intact. transported to 190 ICU on monitor by [facility] staff- [facility] procedure: thrombectomy of right iliac vein, ptca right iliac vein Sheath puller: NA Meds Given Intra-Procedure Sedatives Versed - 2 mg Fentanyl - 50 mcg Anticoagulants Alteplase 10mg Fluids Input - 500 ml Output - 300ml hematuria post angiojet Contrast Isovue 300 - 120ml Other Meds hydralazine 20mg IV
[2018-10-03] MEDS ORDERED: [UNRECOGNIZED DRUG - OTHER] IV SCH (19:00)
[2018-10-03] MEDS ORDERED: HEPARIN IV SCH (19:00)
[2018-10-03] MEDS ORDERED: HEPARIN 25,000U/0.45% NS 250ML 250 ML IV ONE (19:11)
--- NOTE | 2018-10-03 20:34 | Progress Note ---
DATE: 10/03/2018 SUBJECTIVE: The patient is feeling well. Denies any chest pain, shortness of breath, or palpitations. Leg swelling improved. OBJECTIVE: VITAL SIGNS: She is afebrile, heart rate is 60, respirations are 18, blood pressure is 135/50, and oxygen saturation is 100% on room air. GENERAL: Well appearing, well built, in no apparent distress. CARDIOVASCULAR: Regular rate and rhythm. LUNGS: Clear to auscultation. ABDOMEN: Soft, nontender, and nondistended. EXTREMITIES: Right BKA. Left lower extremity swelling. CARDIOVASCULAR MEDICATIONS: Reviewed. LABORATORY DATA: Reviewed. IMPRESSION: 1. Left lower extremity deep vein thrombosis with extensive involvement involving the ileal femoral system. 2. Left lower extremity wound. 3. Hyperlipidemia. 4. Hypertension. 5. Obesity. 6. Diabetes mellitus. 7. Peripheral artery disease, status post right cncmx-xqr-apxe amputation. RECOMMENDATIONS: The patient underwent venography today, which revealed persistent extensive organized thrombus in the left common iliac vein. The patient underwent Power Pulse infusion with tPA with subsequent AngioJet mechanical thrombectomy. This improved flow, however, there was still organized thrombus at the ostium of the left iliac vein. Next, I performed balloon venoplasty with a 12 mm balloon. This also restored a better flow. Continue heparin anticoagulation at this point in time. DO IVONNE Lawler/MODL /[id number]
[2018-10-03] MEDS: VANCOMYCIN 750MG/NS 150ML IVPB 150 ML IV SCH (21:14)
[2018-10-03] MEDS ORDERED: HYDRALAZINE HCL 20 MG/ML VIAL IV PRN (21:45)
[2018-10-03] MEDS: SIMETHICONE 80 MG CHEW PO PRN (22:35)
--- NOTE | 2018-10-03 23:59 | Operative Report ---
DATE OF PROCEDURE: 10/03/2018 SURGEON: Ignacio Jon DO ROCEDURES PERFORMED: 1. Conscious sedation, 45 minutes. 2. First order venography. 3. Mechanical thrombectomy using Angiojet. 4. Venoplasty. PREPROCEDURE DIAGNOSIS: Deep venous thrombosis. POSTPROCEDURE DIAGNOSIS: Deep venous thrombosis. ESTIMATED BLOOD LOSS: Less than 20 mL. SPECIMENS REMOVED: None. PROCEDURE: The patient was brought to the cardiac catheterization laboratory in a fasting and nonsedated state. She was placed prone. The 7-Wolof sheath was exchanged out for a fresh 7-Wolof sheath. Diagnostic venography revealed excellent resolution throughout the popliteal and superficial femoral veins. There is mild clot burden in the distal iliac vein. There is still persistent organized thrombus at the ostium of the left common iliac vein. This was crossed with a wire and Power Pulse with alteplase was performed. This sat for a 20 minutes and I came back and performed manual thrombectomy with the Angiojet catheter. This revealed improvement in flow, however, there was still organized thrombus at the common iliac vein. Next, I performed venoplasty with a 12 x 40 balloon. This also helped to restore flow with [id number] residual organized thrombus present. RECOMMENDATIONS: Continue heparin infusion. No further intervention is needed at this point in time. Remove sheath at 9:00 a.m. after stopping heparin at 7:00 a.m. Ignacio Jon DO BM/MODL /[id number]
[2018-10-04] VITALS (26 sets, daily range): BP systolic 109–154; BP diastolic 40–98
[2018-10-04] MEDS: PIPER-TAZ 3.375 GM 50 ML IV SCH ×4 (02:09→21:04)
[2018-10-04] MEDS: INSULIN LISPRO 100 UNIT/1 ML 3ML VIAL SQ SCH ×4 (07:26→21:02)
[2018-10-04] MEDS: HYDROCODONE/APAP 7.5MG-325MG 1 EA TAB PO PRN ×2 (07:59→13:53)
[2018-10-04] MEDS: SENNA-S TABLET PO SCH ×2 (08:00→16:03)
[2018-10-04] MEDS: DOCUSATE SODIUM 100 MG CAP PO SCH ×2 (08:00→16:03)
[2018-10-04] MEDS: AMLODIPINE BESYLATE 10 MG TAB PO SCH (08:00)
--- NOTE | 2018-10-04 08:01 | NUR ---
MEDICATED FOR PAIN FOR DRESSING CHANGE AND REMOVAL OF VENOUS SHEATH TO E
[2018-10-04 09:10] LABS: BASOPHILS % 0.5 % (0.0-1.0); EOSINOPHILS # (AUTO) 0.4 (0.0-0.4); EOSINOPHILS % 5.4 % (0.0-6.0); HEMATOCRIT 30.4 % (34.2-44.1); HEMOGLOBIN 10.1 g/dL (12.0-16.0); LYMPHOCYTES # (AUTO) 1.4 (1.0-3.2); MEAN CORPUSCULAR HEMOGLOBIN 28.5 pg (28-32); MEAN CORPUSCULAR HGB CONC 33.2 g/dL (31-35); MEAN CORPUSCULAR VOLUME 85.9 fL (81-99); MONOCYTES # (AUTO) 0.9 (0.2-0.8); NEUTROPHILS # (AUTO) 4.7 (2.1-6.9); NEUTROPHILS % 62.6 % (38.7-80.0); PLATELET COUNT 153 x10e3/uL (140-360); RED BLOOD COUNT 3.54 x10e6/uL (3.6-5.1)
[2018-10-04 09:27] LABS: ANION GAP 10.8 mmol/L (8-16); BLOOD UREA NITROGEN 10 mg/dL (7-26); BUN/CREATININE RATIO 13 (6-25); CALCIUM 8.6 mg/dL (8.4-10.2); CARBON DIOXIDE 27 mmol/L (22-29); CHLORIDE 102 mmol/L (98-107); CREATININE, SERUM 0.79 mg/dL (0.57-1.11); EST GLOMERULAR FILTRATION RATE > 60 ML/MIN (60-); GLUCOSE 128 mg/dL (74-118); POTASSIUM 3.8 mmol/L (3.5-5.1); SODIUM 136 mmol/L (136-145)
--- NOTE | 2018-10-04 09:30 | NUR ---
WOUND CARE DONE TO LLE. VENOUS SHEATH TO LEFT POPLITEAL REMOVED PER MD ORDER. HELD PRESSURE AT SITE X 10 MINUTES WHEN HEMOSTASIS ACHIEVED. PRESSURE DRESSING APPLIED TO SITE. Addendum: 10/04/18 at 1032 by iJng Moya RN Amended: Links added.
[2018-10-04] MEDS: ENOXAPARIN SODIUM INJ 100 MG/ML SYR SC SCH ×2 (09:55→21:04)
[2018-10-04] MEDS: INSULIN GLARGINE 100 UNITS/ML VIAL SQ SCH (09:55)
--- NOTE | 2018-10-04 13:12 | Progress Note ---
DATE: 10/04/2018 Cardiology Progress Note SUBJECTIVE: The patient is without any complaints. She states that she feels quite well. She denies any shortness of breath, palpitations, chest pain, or lower extremity pain. CARDIOVASCULAR MEDICATIONS: Lovenox 90 mg subcu q.12 hours, amlodipine 10 mg p.o. daily, and hydralazine 10 mg q.2 hours p.r.n. for hypertension. LABORATORY DATA: WBC 7.44, hemoglobin 10.1, hematocrit 30.4, and platelets 153. Sodium 136, potassium 3.8, BUN 10, creatinine 0.79, glucose 128, and calcium 8.6. OBJECTIVE: VITAL SIGNS: Temperature 100.0, pulse 71, respiratory rate 14, blood pressure 152/48, and oxygen saturation 99% on room air. GENERAL: Alert and oriented x3. Resting comfortably in bed, does not appear to be in any acute distress. LUNGS: Diminished breath sounds anterior lower lobes, otherwise, clear to auscultation. No wheezing. No rhonchi or crackles. CARDIOVASCULAR: Regular rate and rhythm. 3/6 systolic murmur present. No S4 noted. ABDOMEN: Soft, nontender. EXTREMITIES: Lower extremities, right BKA noted. Left lower extremity with trace swelling, 1+ pedal pulses. IMPRESSION: 1. Left lower extremity deep venous thrombosis with extensive involvement involving the iliofemoral system. 2. Left lower extremity wound. 3. Hyperlipidemia. 4. Hypertension. 5. Obesity. 6. Diabetes mellitus. 7. Peripheral arterial disease, status post ewxbn-tvi-[id number] amputation of the right. RECOMMENDATION: The patient underwent venography yesterday, which revealed persistent extensive organized thrombus in the left common iliac vein. The patient underwent power pulse infusion with tPA with subsequent Angiojet mechanical thrombectomy. This improved flow; however, she still has organized thrombus in the ostium of the left iliac vein. The patient is to continue anticoagulation with Lovenox at this time. Continue the rest of the above-listed cardiac medication. Continue to monitor on tele. Medications adjusted. Initiate statin given history of peripheral arterial disease. We will continue to follow this patient very closely. Dictated by Abby Barreto NP MD ANJUM [place]/STEVE /[id number]
--- NOTE | 2018-10-04 18:40 | NUR ---
IM- Progress note o/N no events ROS: no cp/sob/dizziness/vision changes/skin rash/back pain/GARBER v/s: rev'd PE: tired appearing anicteric ns1s2 mod bs soft nt nd right BKA left foreleg erythematous/edematous/tender/warm; chronic changes of great toe skin dry flat affect A&OX3; whitaker labs/meds; revd A/P: 73yoF Cellulitis of left leg DM2 HTN PAD PLAN IV abx U/S of leg lovenox cardio eval hab1c/LDL 10.3/129 ADA diet ppi on AC Uncontrolled DM2; CLEMENTINA - d/c losartan; and Hypokalemia- replace; ; Obesity BMI 35.4 f/u vascular studies; check BMP s/p venogram; alteplase/heparin infusion; heavy load left leg thrombus. slabber light later today again. s/p tPA infusion and throbectomy; Miguel Giron MD, PhD
[2018-10-04] MEDS: ONDANSETRON HCL 4 MG ORAL DISINTEGRATING TAB PO PRN (20:08)
--- NOTE | 2018-10-04 20:57 | NUR ---
DR GILMAN STATES OK FOR PATIENT TO TRANSFER TO [facility] TELE BED AND ACTIVITY AND WEIGHT BEARING TOLERATED
[2018-10-04] MEDS: ATORVASTATIN 20 MG TAB PO SCH (21:04)
[2018-10-04] MEDS: VANCOMYCIN 750MG/NS 150ML IVPB 150 ML IV SCH (22:05)
[2018-10-05] VITALS (14 sets, daily range): BP systolic 101–140; BP diastolic 36–64
[2018-10-05] MEDS: PIPER-TAZ 3.375 GM 50 ML IV SCH ×4 (03:06→21:00)
[2018-10-05] MEDS: INSULIN LISPRO 100 UNIT/1 ML 3ML VIAL SQ SCH ×4 (07:30→21:12)
[2018-10-05] MEDS: DOCUSATE SODIUM 100 MG CAP PO SCH ×2 (08:02→16:57)
[2018-10-05] MEDS: SENNA-S TABLET PO SCH ×2 (08:03→16:57)
[2018-10-05] MEDS: AMLODIPINE BESYLATE 10 MG TAB PO SCH (08:03)
[2018-10-05] MEDS: ENOXAPARIN SODIUM INJ 100 MG/ML SYR SC SCH ×2 (08:03→21:12)
[2018-10-05] MEDS: INSULIN GLARGINE 100 UNITS/ML VIAL SQ SCH (08:11)
--- NOTE | 2018-10-05 08:18 | NUR ---
PATIENT ASSISTED TO EDGE OF BED FOR BREAKFAST. PATIENT HAVING ARE HARD TIME HOLDING HER TRUNK UP AND COMPLAINS THAT HER NECK HURTS.
--- NOTE | 2018-10-05 09:24 | NUR ---
RCD PT FROM ICU BY BED PT IS ALERT AND ORIENTED VITALS CHECKED PT RESTING ON BED BED LOW AND LOCKED CALL LIGHT IN REACH
--- NOTE | 2018-10-05 14:48 | NUR ---
IM- Progress note o/N no events ROS: no cp/sob/dizziness/vision changes/skin rash/back pain/GARBER v/s: rev'd PE: tired appearing anicteric ns1s2 mod bs soft nt nd right BKA left foreleg erythematous/edematous/tender/warm; chronic changes of great toe skin dry flat affect A&OX3; whitaker labs/meds; revd A/P: 73yoF Cellulitis of left leg DM2 HTN PAD PLAN IV abx U/S of leg lovenox cardio eval hab1c/LDL 10.3/129 ADA diet ppi on AC Uncontrolled DM2; CLEMENTINA - d/c losartan; and Hypokalemia- replace; ; Obesity BMI 35.4 f/u vascular studies; check BMP s/p venogram; alteplase/heparin infusion; heavy load left leg thrombus. 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 s/p tPA infusion and throbectomy; s/p IVC filter placement; Miguel Giron MD, PhD
[2018-10-05] MEDS ORDERED: SODIUM CHLORIDE 0.9% 250ML 250 ML ONE (15:22)
[2018-10-05] MEDS: ACETAMINOPHEN 325 MG TAB PO PRN (17:50)
--- NOTE | 2018-10-05 18:37 | Progress Note ---
DATE: 10/05/2018 Cardiology Progress Note SUBJECTIVE: The patient is without any new complaints. She does endorse being tired and feeling weak, but denies any chest pain, shortness of breath, or even leg pain. OBJECTIVE: VITAL SIGNS: Temperature 97.6, pulse 65, respiratory rate 20, blood pressure 129/60, and oxygen saturation 95% on room air. GENERAL: Alert and oriented x3. Resting comfortably in bed. Does not appear to be in any acute distress. NECK: Supple. No JVD noted. LUNGS: Diminished breath sounds in anterior and posterior lower lobes, otherwise clear to auscultation. No wheezing. No rhonchi or crackles. CARDIOVASCULAR: Regular rate and rhythm, 3/6 systolic murmur present. No S4 noted. ABDOMEN: Soft, nontender. LOWER EXTREMITIES: Right BKA noted. Left lower extremity with trace swelling, 1+ pedal pulses. CARDIOVASCULAR MEDICATIONS: Amlodipine 10 mg p.o. daily, Lovenox 90 mg subcu q.12, and Atorvastatin 20 mg p.o. at bedtime. LABS: No new labs today. IMPRESSION: 1. Left lower extremity deep vein thrombosis with extensive involvement of the iliofemoral system. 2. Left lower extremity wound. 3. Peripheral arterial disease. 4. Hyperlipidemia. 5. Hypertension. 6. Obesity. 7. Diabetes mellitus. RECOMMENDATION: This patient has underwent venography, which revealed persistent extensive organized thrombus in the left common iliac vein. The patient underwent power pulse infusion with tPA with subsequent Angiojet mechanical thrombectomy. This improved flow; however, she still has an organized thrombus in the ostium of the left iliac vein. She will need to continue anticoagulation with Lovenox at this time. Continue the rest of the above-listed medications. Continue to monitor on telemetry. We will continue to follow this patient very closely. Dictated by Abby Barreto, SADI MD ANJUM [place]/STEVE /[id number]
--- NOTE | 2018-10-05 18:45 | NUR ---
PT RESTING ON BED BED SIDE REPORT GIVEN TO ONCOMING NURSE
[2018-10-05] MEDS: VANCOMYCIN 750MG/NS 150ML IVPB 150 ML IV SCH (21:00)
[2018-10-05] MEDS: ATORVASTATIN 20 MG TAB PO SCH (21:12)
[2018-10-06] VITALS (8 sets, daily range): BP systolic 127–165; BP diastolic 58–90
[2018-10-06] MEDS: ACETAMINOPHEN 325 MG TAB PO PRN (02:16)
[2018-10-06] MEDS: PIPER-TAZ 3.375 GM 50 ML IV SCH ×4 (03:00→22:07)
[2018-10-06] MEDS: INSULIN LISPRO 100 UNIT/1 ML 3ML VIAL SQ SCH ×4 (07:30→21:50)
[2018-10-06] MEDS ORDERED: SODIUM CHLORIDE 0.9% 250ML 250 ML ONE (08:44)
[2018-10-06] MEDS: DOCUSATE SODIUM 100 MG CAP PO SCH ×2 (09:11→16:48)
[2018-10-06] MEDS: AMLODIPINE BESYLATE 10 MG TAB PO SCH (09:12)
[2018-10-06] MEDS: ENOXAPARIN SODIUM INJ 100 MG/ML SYR SC SCH (09:12)
[2018-10-06] MEDS: SENNA-S TABLET PO SCH ×2 (09:12→16:48)
--- NOTE | 2018-10-06 09:40 | NUR ---
Nutrition Screen Note RD Recommendation for Physician: -Consider cardiac, 1800 ADA diet per MD. Plan of Care: RD following, monitoring for tolerance and adequacy. Provided education. Nutrition reason for involvement: LOS Primary Diagnose(s): Cellulitis PMH: peripheral arterial disease, status post multiple interventions leading to a right uffch-olq-cnny amputation, hypertension, diabetes mellitus, hyperlipidemia, obesity. Ht: 64 in Wt: 212 lb BMI: 36.8 kg/m2 IBW: [address] Assessment: (10/06 ) 73 YOF admitted for cellulitis with PMH listed above. Pt stated her appetite was good when she entered the hospital but today it is somewhat poor, 50% of her breakfast tray was consumed so far at time of visit. Pt denied knowing of any recent weight loss. Pt stated she is trying to take it slow when is comes to eating. Pt denied N/V, stated she is on a stool softener for constipation but has not had a BM yet per pt, and denied any chewing or swallowing issues. Pt accepted information regarding DM and was educated on carb portions, food label and other healthy tips regarding DM. Pt had no further questions or concerns. Chart reviewed. Labs and meds reviewed. Will continue to monitor. Current Diet: ADA 1800 Malnutrition Evaluation (10/06) The patient does not meet criteria for a specified degree of malnutrition at this time. Will re-evaluate at follow-up as appropriate. Diet Education Needs Assessment: Diet education indicated, pt accepted education. Learner(s): Barriers: n/a Cultural/Language Modifications: n/a Readiness: acceptance Method: discussion and handout Topics: DM diet Understanding/Compliance: verbalized understanding, anticipate fair compliance Nutrition Care Level: low Signed: Myra Olvera, HOWARD, LD
[2018-10-06] MEDS: INSULIN GLARGINE 100 UNITS/ML VIAL SQ SCH (11:30)
--- NOTE | 2018-10-06 14:15 | NUR ---
IM- Progress note o/N no events ROS: no cp/sob/dizziness/vision changes/skin rash/back pain/GARBER v/s: rev'd PE: tired appearing anicteric ns1s2 mod bs soft nt nd right BKA left foreleg erythematous/edematous/tender/warm; chronic changes of great toe skin dry flat affect A&OX3; whitaker labs/meds; revd A/P: 73yoF Cellulitis of left leg DM2 HTN PAD PLAN IV abx U/S of leg lovenox cardio eval hab1c/LDL 10.3/129 ADA diet ppi on AC Uncontrolled DM2; CLEMENTINA - d/c losartan; and Hypokalemia- replace; ; Obesity BMI 35.4 f/u vascular studies; check BMP s/p venogram; alteplase/heparin infusion; heavy load left leg thrombus. 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 s/p tPA infusion and throbectomy; s/p IVC filter placement; SNF eval Miguel Giron MD, PhD
[2018-10-06] MEDS ORDERED: LIPITOR20 MG PO (14:18)
[2018-10-06] MEDS ORDERED: SENNA S TABLET1 EACH PO (14:18)
[2018-10-06] MEDS ORDERED: COLACE100 MG PO (14:18)
[2018-10-06] MEDS ORDERED: SIMETHICONE80 MG PO (14:18)
[2018-10-06] MEDS ORDERED: CLINDAMYCIN HC300 MG PO (14:18)
--- NOTE | 2018-10-06 14:36 | NUR ---
18F klein discontinued as ordered. Patient tolerated well
[2018-10-06] MEDS ORDERED: FUROSEMIDE INJ 10 MG/ML 2 ML VIAL IV ONE (14:45)
--- NOTE | 2018-10-06 15:50 | NUR ---
Spoke with Dr. Giron, He stated he put in SNF eval order but pt demanded [facility] and if not, pt will consider SNF at [facility]. gave order for [facility]. Informed discharging CM Karla Hodge of order and that pt would like to speak with her.
--- NOTE | 2018-10-06 16:23 | NUR ---
CM SPOKE TO PATIENT REGARDING PLAN OF CARE. CM INFORMED PATIENT OF [facility] ACUTE CARE ORDER PLACED BY MEDICAL DOCTOR FOR DISCHARGE PLAN. PATIENT GIVEN CHOICES AND VERBALLY AGREED TO REFERRAL [facility]. CHOICE LETTER SIGNED BY PATIENT THEN PLACED IN CHART. CLINICAL PICKED UP BY [facility] LIAISON NOEMÍ BUNDY. PENDING INSURANCE AUTH TO [facility]. [facility] Address: [address] [place] [address], [place] [address] PENDING AUTH AND MOT FOR TRANSFER. MOT INITIATED AND PLACED AT NURSING STATION WITH DYNAMICS AX SOLUTION ARCHITECT JONAH.
--- NOTE | 2018-10-06 18:00 | NUR ---
patient voided without discomfort
--- NOTE | 2018-10-06 19:15 | NUR ---
Bedside report given to oncoming nurse. Resting in bed with eyes closed, arousable to verbal stimuli. Respirations even and unlabored. Call light within reach, bed alarm on.
--- NOTE | 2018-10-06 21:54 | Progress Note ---
DATE: 10/06/2018 Cardiology Progress Note SUBJECTIVE: The patient is feeling better. Left lower extremity is better, less edema, less pain. OBJECTIVE: VITAL SIGNS: Temperature is 97.8, heart rate is 66, respirations are 18, blood pressure is 127/58, and ox saturation 97% on room air. GENERAL: Well appearing, well built, in no apparent distress. CARDIOVASCULAR: Regular rate and rhythm. LUNGS: Clear to auscultation. ABDOMEN: Soft, nontender, and nondistended. EXTREMITIES: Right BKA. Left extremity wound is wrapped with improvement of her edema. CARDIOVASCULAR MEDICATIONS: Reviewed. IMPRESSION: 1. Deep venous thrombosis, status post intervention. 2. Peripheral artery disease. 3. Hyperlipidemia. 4. Hypertension. 5. Obesity. 6. Diabetes mellitus. 7. Wound. RECOMMENDATIONS: The patient status post intervention of her left DVT. Continue anticoagulation. It appears that the Lovenox has been discontinued. Start oral anticoagulation. Continue to monitor closely on telemetry. DO IVONNE Lawler/MODL /[id number]
[2018-10-06] MEDS: ATORVASTATIN 20 MG TAB PO SCH (22:07)
[2018-10-06] MEDS: VANCOMYCIN 750MG/NS 150ML IVPB 150 ML IV SCH (23:04)
[2018-10-07] VITALS (7 sets, daily range): BP systolic 130–160; BP diastolic 58–70
[2018-10-07] MEDS: ACETAMINOPHEN 325 MG TAB PO PRN ×3 (02:50→22:19)
[2018-10-07] MEDS: PIPER-TAZ 3.375 GM 50 ML IV SCH ×4 (02:50→21:28)
--- NOTE | 2018-10-07 05:42 | NUR ---
IM- Progress note o/N no events ROS: no cp/sob/dizziness/vision changes/skin rash/back pain/GARBER v/s: rev'd PE: tired appearing anicteric ns1s2 mod bs soft nt nd right BKA left foreleg erythematous/edematous/tender/warm; chronic changes of great toe skin dry flat affect A&OX3; whitaker labs/meds; revd A/P: 73yoF Cellulitis of left leg DM2 HTN PAD PLAN IV abx U/S of leg lovenox cardio eval hab1c/LDL 10.3/129 ADA diet ppi on AC Uncontrolled DM2; CLEMENTINA - d/c losartan; and Hypokalemia- replace; ; Obesity BMI 35.4 f/u vascular studies; check BMP s/p venogram; alteplase/heparin infusion; heavy load left leg thrombus. 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 s/p tPA infusion and throbectomy; s/p IVC filter placement; SNF eval Miguel Giron MD, PhD
[2018-10-07] MEDS: INSULIN LISPRO 100 UNIT/1 ML 3ML VIAL SQ SCH ×4 (07:30→21:29)
[2018-10-07] MEDS: SENNA-S TABLET PO SCH ×2 (08:20→16:20)
[2018-10-07] MEDS: DOCUSATE SODIUM 100 MG CAP PO SCH ×2 (08:20→16:20)
[2018-10-07] MEDS: AMLODIPINE BESYLATE 10 MG TAB PO SCH (08:20)
[2018-10-07] MEDS: INSULIN GLARGINE 100 UNITS/ML VIAL SQ SCH (11:30)
[2018-10-07] MEDS ORDERED: BISACODYL 5 MG TAB EC PO ONE (13:00)
[2018-10-07] MEDS: RIVAROXABAN 15 MG TABLET PO SCH ×2 (13:30→16:20)
[2018-10-07] MEDS: ONDANSETRON HCL 4 MG ORAL DISINTEGRATING TAB PO PRN (16:20)
[2018-10-07] MEDS: SIMETHICONE 80 MG CHEW PO PRN (16:20)
--- NOTE | 2018-10-07 19:25 | NUR ---
Bedside report given to oncoming nurse. No s/s of acute distress noted. Side rails upx2, call light within reach, bed alarm on.
[2018-10-07] MEDS: ATORVASTATIN 20 MG TAB PO SCH (21:28)
[2018-10-07] MEDS: VANCOMYCIN 750MG/NS 150ML IVPB 150 ML IV SCH (21:52)
--- NOTE | 2018-10-07 23:13 | NUR ---
Patient is requesting an order for a suppository, stated she hasn't had a BM in [address] Giron, left a message to return call.
--- NOTE | 2018-10-07 23:47 | NUR ---
Dr. Giron returned call, orders received and placed
[2018-10-08] VITALS (7 sets, daily range): BP systolic 141–185; BP diastolic 58–75
[2018-10-08] MEDS ORDERED: BISACODYL 10 MG SUPP PR PRN
[2018-10-08] MEDS: PIPER-TAZ 3.375 GM 50 ML IV SCH ×4 (03:55→21:01)
[2018-10-08] MEDS: ACETAMINOPHEN 325 MG TAB PO PRN (04:48)
--- NOTE | 2018-10-08 06:29 | NUR ---
IM- Progress note o/N no events ROS: no cp/sob/dizziness/vision changes/skin rash/back pain/GARBER v/s: rev'd PE: tired appearing anicteric ns1s2 mod bs soft nt nd right BKA left foreleg erythematous/edematous/tender/warm; chronic changes of great toe skin dry flat affect A&OX3; whitaker labs/meds; revd A/P: 73yoF Cellulitis of left leg DM2 HTN PAD PLAN IV abx U/S of leg lovenox cardio eval hab1c/LDL 10.3/129 ADA diet ppi on AC Uncontrolled DM2; CLEMENTINA - d/c losartan; and Hypokalemia- replace; ; Obesity BMI 35.4 f/u vascular studies; check BMP s/p venogram; alteplase/heparin infusion; heavy load left leg thrombus. 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 s/p tPA infusion and throbectomy; s/p IVC filter placement; SNF eval LTAC eval per pt request; Vanco therapeutic; check labs soon. Miguel Giron MD, PhD
--- NOTE | 2018-10-08 07:00 | NUR ---
RECEIVED BEDSIDE REPORT FROM NIGHT RN. PT DENIES NEEDS AT THIS TIME.
[2018-10-08] MEDS: INSULIN LISPRO 100 UNIT/1 ML 3ML VIAL SQ SCH ×4 (07:30→21:01)
[2018-10-08] MEDS: DOCUSATE SODIUM 100 MG CAP PO SCH ×2 (09:02→18:02)
[2018-10-08] MEDS: AMLODIPINE BESYLATE 10 MG TAB PO SCH (09:03)
[2018-10-08] MEDS: SENNA-S TABLET PO SCH ×2 (09:03→18:02)
[2018-10-08] MEDS: RIVAROXABAN 15 MG TABLET PO SCH ×2 (09:03→18:02)
[2018-10-08] MEDS: INSULIN GLARGINE 100 UNITS/ML VIAL SQ SCH (09:15)
--- NOTE | 2018-10-08 11:58 | NUR ---
CM SPOKE TO PATIENT AND PATIENT FAMILY AT BEDSIDE REGARDING DISCHARGE PLAN. PATIENT STATES SHE WOULD RATHER GO TO INPATIENT REHAB AT [facility] AND NOT [facility]ERK ACUTE CARE PLACEMENT AT [facility]. PATIENT EDUCATED ON THE DIFFERENT LEVELS OF CARE AND QUALIFICATIONS WELL [facility] INPATIENT RIGHTS. PATIENT VERBALLY AGREED. PATIENT STATES SHE WANTS TO THINK ABOUT DECISION PRIOR TO CANCELLING TRADE CLERK ACUTE CARE AND INITIATING INPATIENT ACUTE REHAB PLACEMENT. CM TO FOLLOW UP AFTER ROUNDS.
--- NOTE | 2018-10-08 12:36 | NUR ---
CM AND BEDSIDE RNCRISTINA SPOKE TO PATIENT AND PATIENT FRIEND AT BEDSIDE (WITH PATIENT APPROVAL). CM REITERATED THE DIFFERENCE BETWEEN [facility]UTE C[facility] AND INPATIENT REHAB. PATIENT CHOSE TO CONTINUE WITH LONG-TERM ACUTE CARE PLACEMENT AT [facility]. PATIENT FRIEND, RAÚL SEEN BY CRISTINA MATHEWS WITH SOMEONE ON THE PHONE LISTENING TO CONVERSATION WITH PATIENT. PATIENT FRIEND RAÚL KOCH [phone] INFORMED THAT IT IS A HIPPA VIOLATION. SHE STATES SHE WASN'T AWARE BUT PER CRISTINA MATHEWS SHE CONTINUED TO CHECK PHONE THROUGHOUT CONVERSATION. SITUATION ESCALATED TO CM DIRECTOR LUANNE JAMES AND NURSING LEADERSHIP.
--- NOTE | 2018-10-08 19:00 | NUR ---
BEDSIDE SHIFT REPORT GIVEN TO MOLDING SANDER RN
[2018-10-08] MEDS: ATORVASTATIN 20 MG TAB PO SCH (21:01)
[2018-10-08] MEDS ORDERED: SODIUM CHLORIDE 0.9% 250ML 250 ML ONE (22:09)
[2018-10-08] MEDS: VANCOMYCIN 750MG/NS 150ML IVPB 150 ML IV SCH (22:16)
[2018-10-09] VITALS (8 sets, daily range): BP systolic 139–178; BP diastolic 61–74
[2018-10-09] MEDS: PIPER-TAZ 3.375 GM 50 ML IV SCH ×2 (03:05→09:18)
--- NOTE | 2018-10-09 07:00 | NUR ---
RECEIVED BEDSIDE SHIFT REPORT FROM POTATO LOADER RN . PT AAOX 3. BED ALARM IS ON. BED AT LOWEST POSITION. CALL LIGHT WITHIN REACH. PT DENIES NEEDS AT THIS TIME
[2018-10-09] MEDS: INSULIN LISPRO 100 UNIT/1 ML 3ML VIAL SQ SCH ×4 (07:30→21:39)
[2018-10-09] MEDS: INSULIN GLARGINE 100 UNITS/ML VIAL SQ SCH (09:00)
[2018-10-09] MEDS: DOCUSATE SODIUM 100 MG CAP PO SCH ×2 (09:18→17:45)
[2018-10-09] MEDS: SENNA-S TABLET PO SCH ×2 (09:19→17:45)
[2018-10-09] MEDS: RIVAROXABAN 15 MG TABLET PO SCH ×2 (09:19→17:45)
[2018-10-09] MEDS: AMLODIPINE BESYLATE 10 MG TAB PO SCH (09:19)
[2018-10-09 09:35] LABS: BASOPHILS % 0.4 % (0.0-1.0); EOSINOPHILS # (AUTO) 0.5 (0.0-0.4); EOSINOPHILS % 5.8 % (0.0-6.0); HEMATOCRIT 25.6 % (34.2-44.1); HEMOGLOBIN 8.5 g/dL (12.0-16.0); LYMPHOCYTES # (AUTO) 2.1 (1.0-3.2); LYMPHOCYTES % 23.9 % (18.0-39.1); MEAN CORPUSCULAR HEMOGLOBIN 28.9 pg (28-32); MEAN CORPUSCULAR HGB CONC 33.2 g/dL (31-35); MEAN CORPUSCULAR VOLUME 87.1 fL (81-99); MONOCYTES # (AUTO) 0.7 (0.2-0.8); MONOCYTES % 7.4 % (4.4-11.3); NEUTROPHILS # (AUTO) 5.5 (2.1-6.9); NEUTROPHILS % 61.7 % (38.7-80.0); PLATELET COUNT 246 x10e3/uL (140-360); RED BLOOD COUNT 2.94 x10e6/uL (3.6-5.1); RED CELL DISTRIBUTION WIDTH 14.9 % (11.7-14.4)
[2018-10-09 09:52] LABS: ANION GAP 11.8 mmol/L (8-16); CALCIUM 8.4 mg/dL (8.4-10.2); CREATININE, SERUM 3.55 mg/dL (0.57-1.11); POTASSIUM 3.8 mmol/L (3.5-5.1)
[2018-10-09] MEDS ORDERED: MORPHINE SULFATE 2 MG/ML SYR 1ML IV STA (12:38)
[2018-10-09] MEDS ORDERED: MORPHINE SULFATE INJ 4 MG/ML INJ 1ML IV ONE (12:45)
[2018-10-09] MEDS ORDERED: LIDOCAINE 1% W/EPINEPHRINE 20 ML VIAL INJ ONE ×2 (12:45→13:00)
--- NOTE | 2018-10-09 13:00 | NUR ---
PT MEDICATED FOR PAIN PER DR. KAUR ORDER. SCALPEL, EZIO, NS FLUSH, TAPE AND LIDOCAINE WITH SYRINGE AND NEEDLE AT BEDSIDE. Addendum: 10/09/18 at 1403 by Sean Cole RN CALL PLACED TO DR. KAUR TO LET HIM KNOW PT AND SUPPLIES READY.
[2018-10-09 14:19] LABS: LYMPHOCYTES % (MANUAL) 21 % (19-48); MONOCYTES % (MANUAL) 5 % (3.4-9.0); NEUTROPHILS % (MANUAL) 70 % (40-74); PLATELET MORPHOLOGY COMMENT NORMAL; RBC MORPHOLOGY COMMENT NORMAL; SMUDGE CELLS FEW
[2018-10-09 14:20] LABS: ANISOCYTOSIS SLIGHT; HYPOCHROMASIA SLIGHT; PLATELET ESTIMATE ADEQUATE
--- NOTE | 2018-10-09 16:45 | NUR ---
Juarez Buenrostro with [facility], still pending auth.
--- NOTE | 2018-10-09 17:54 | NUR ---
IM- Progress note o/N no events ROS: no cp/sob/dizziness/vision changes/skin rash/back pain/GARBER v/s: rev'd PE: tired appearing anicteric ns1s2 mod bs soft nt nd right BKA left foreleg erythematous/edematous/tender/warm; chronic changes of great toe skin dry flat affect A&OX3; whitaker labs/meds; revd A/P: 73yoF Cellulitis of left leg DM2 HTN PAD PLAN IV abx U/S of leg lovenox cardio eval hab1c/LDL 10.3/129 ADA diet ppi on AC Uncontrolled DM2; CLEMENTINA - d/c losartan; and Hypokalemia- replace; ; Obesity BMI 35.4 f/u vascular studies; check BMP s/p venogram; alteplase/heparin infusion; heavy load left leg thrombus. 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 s/p tPA infusion and throbectomy; s/p IVC filter placement; SNF eval LTAC eval per pt request; Vanco therapeutic; check labs soon. Denies LTAC; SNF pending; Miguel Giron MD, PhD
--- NOTE | 2018-10-09 19:00 | NUR ---
BEDSIDE SHIFT REPORT GIVEN TO ELECTRIC HOIST OPERATOR RN. PT DENIED FURTHER NEEDS.
[2018-10-09] MEDS: SIMETHICONE 80 MG CHEW PO PRN (19:23)
--- NOTE | 2018-10-09 19:30 | NUR ---
Patient visited in room during nursing rounds. Patient alert and oriented x3. No distress or discomfort noted. Dressing on right side of neck appearing clean and dry. Pt with right BKA and has prosthetic leg at bedside to be used prn with assist. Call coon within reach. Will monitor closely.
--- NOTE | 2018-10-09 20:44 | Progress Note ---
DATE: 10/09/2018 Cardiology Progress Note SUBJECTIVE: The patient is feeling better. Denies any chest pain or shortness of breath. Reports improvement in her lower extremity swelling. OBJECTIVE: VITAL SIGNS: Temperature is 98.5, heart rate 76, respirations 18, blood pressure is 161/63, and oxygen saturation 98% on room air. GENERAL: Well appearing, well built, in no apparent distress. CARDIOVASCULAR: Regular rate and rhythm. LUNGS: Clear to auscultation. ABDOMEN: Soft, nontender, and nondistended. EXTREMITIES: Trace left lower extremity edema. Wound is dressed and wrapped. Right BKA. MEDICATIONS: Reviewed. TELEMETRY: Monitoring revealed normal sinus rhythm. IMPRESSION: 1. Deep venous thrombosis, status post intervention and inferior vena cava filter placement. 2. Peripheral arterial disease. 3. Hyperlipidemia. 4. Hypertension. 5. Obesity. 6. Diabetes mellitus. 7. Lower extremity wound. RECOMMENDATIONS: The patient is status post intervention of her left DVT. She underwent IVC filter placement, which will need to be removed at a later date. Continue anticoagulation. Continue to monitor closely on telemetry. Continue all the current infectious treatment per primary team. DO IVONNE Lawler/MODL /[id number]
[2018-10-09] MEDS: ATORVASTATIN 20 MG TAB PO SCH (21:39)
[2018-10-10] VITALS (8 sets, daily range): BP systolic 148–187; BP diastolic 66–75
[2018-10-10] MEDS: ACETAMINOPHEN 325 MG TAB PO PRN (00:50)
[2018-10-10] MEDS ORDERED: SODIUM CHLORIDE 0.45% 1,000 ML IV ONE (03:00)
--- NOTE | 2018-10-10 04:00 | NUR ---
Patient assisted up using walker and prosthetic leg to bedside commode to urinate. Patient then cleaned and diaper changed and helped back to bed.
--- NOTE | 2018-10-10 06:00 | NUR ---
Patient resting in bed. Pt in stable condition. Will hand off to dayshift RN pt care.
[2018-10-10 06:44] LABS: BASOPHILS % 0.4 % (0.0-1.0); EOSINOPHILS # (AUTO) 0.5 (0.0-0.4); EOSINOPHILS % 5.5 % (0.0-6.0); HEMATOCRIT 25.1 % (34.2-44.1); LYMPHOCYTES # (AUTO) 2.4 (1.0-3.2); LYMPHOCYTES % 27.9 % (18.0-39.1); MEAN CORPUSCULAR HEMOGLOBIN 28.5 pg (28-32); MEAN CORPUSCULAR HGB CONC 31.9 g/dL (31-35); MEAN CORPUSCULAR VOLUME 89.3 fL (81-99); MONOCYTES # (AUTO) 0.8 (0.2-0.8); MONOCYTES % 9.8 % (4.4-11.3); NEUTROPHILS # (AUTO) 4.7 (2.1-6.9); NEUTROPHILS % 55.9 % (38.7-80.0); PLATELET COUNT 254 x10e3/uL (140-360); RED BLOOD COUNT 2.81 x10e6/uL (3.6-5.1); RED CELL DISTRIBUTION WIDTH 15.2 % (11.7-14.4)
[2018-10-10 06:56] LABS: ANION GAP 10.7 mmol/L (8-16); CALCIUM 8.4 mg/dL (8.4-10.2); CREATININE, SERUM 3.76 mg/dL (0.57-1.11); POTASSIUM 3.7 mmol/L (3.5-5.1)
[2018-10-10] MEDS: INSULIN LISPRO 100 UNIT/1 ML 3ML VIAL SQ SCH ×4 (08:00→21:15)
[2018-10-10] MEDS: SENNOSIDES 8.6 MG TAB PO SCH (09:00)
[2018-10-10] MEDS: SENNA-S TABLET PO SCH ×2 (09:27→17:00)
[2018-10-10] MEDS: DOCUSATE SODIUM 100 MG CAP PO SCH ×2 (09:27→17:00)
[2018-10-10] MEDS: RIVAROXABAN 15 MG TABLET PO SCH ×2 (09:27→17:00)
[2018-10-10] MEDS: AMLODIPINE BESYLATE 10 MG TAB PO SCH (09:27)
[2018-10-10] MEDS: INSULIN GLARGINE 100 UNITS/ML VIAL SQ SCH (09:28)
--- NOTE | 2018-10-10 11:03 | NUR ---
IM- Progress note o/N no events ROS: no cp/sob/dizziness/vision changes/skin rash/back pain/GARBER v/s: rev'd PE: tired appearing anicteric ns1s2 mod bs soft nt nd right BKA left foreleg erythematous/edematous/tender/warm; chronic changes of great toe skin dry flat affect A&OX3; whitaker labs/meds; revd A/P: 73yoF Cellulitis of left leg DM2 HTN PAD PLAN IV abx U/S of leg lovenox cardio eval hab1c/LDL 10.3/129 ADA diet ppi on AC Uncontrolled DM2; CLEMENTINA - d/c losartan; and Hypokalemia- replace; ; Obesity BMI 35.4 f/u vascular studies; check BMP s/p venogram; alteplase/heparin infusion; heavy load left leg thrombus. 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 s/p tPA infusion and throbectomy; s/p IVC filter placement; SNF eval LTAC eval per pt request; Vanco therapeutic; check labs soon. Denies LTAC; SNF pending; 10/10 CLEMENTINA- vanc already discontinued; cont IVF; bolus 1L; UA; will resolve slowly; mgmt can be continued at SNF. Miguel Giron MD, PhD
--- NOTE | 2018-10-10 11:16 | NUR ---
ARTURO SPOKE TO DR. RICE REGARDING PATIENT DISCHARGE PLAN. PATIENT DENIED [facility]PER[facility] ACUTE CARE PLACEMENT. PATIENT STATES SHE IS SICK OF HOSPITALS AND WILL GO HOME WITH HOME HEALTH FOR PT/ OT EVAL. DR. RICE NOTIFIED. DR. RICE SPOKE TO PATIENT AND PATIENT AGREED TO [facility] FOR 5-7 DAYS PRIOR TO HOME. WHEN LUANNE, SW WENT INTO ROOM PATIENT STATES SHE REFUSES GOING TO ALF FACILITY AND WANTS AN INPATIENT REHAB EVAL. CM INFORMED DR. RICE OF PATIENT REQUEST. DR. RICE STATES NOT TO PUT IN ORDER AND HE WILL CHECK HER KIDNEY FUNCTION PRIOR TO PLACING HOME HEALTH ORDER FOR DISCHARGE.
--- NOTE | 2018-10-10 11:24 | NUR ---
WAS SENT TO ROOM TO GET A CHOICE, DR RICE STATED PT WAS IN AGREEMENT TO GO TO [facility]. WALKED IN TO ROOM SHE WAS ON PHONE WITH HER FRIEND RAÚL KOCH [phone] WHOM STATES SHE ABSOLUTELY WAS NOT TO RETURN TO [facility] SHE HAD BEEN BEFORE AND WILL NOT RETURN. 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 I EDUCATED IT WAS FOR A SHORT TIME AND SHE STILL STATES ADAMANTLY NOT GOING, SHE STATES SHE HAS ASKED FOR [facility] SINCE THEY GOT HERE. AND STATES THE DOCTOR TOLD HER FROM THE BEGINNING THAT THE INSURANCE WOULD NOT AGREE TO PAY, SHE STATES SHE WANTS TO TRY ANYWAY. LET CM KNOW TO FOLLOW UP WITH .
--- NOTE | 2018-10-10 12:08 | NUR ---
CM SPOKE TO PATIENT AT BEDSIDE REGARDING IMM LETTER. IMM LETTER GIVEN WITH EXPLANATION BASED ON ANTICIPATED DISCHARGE DATE. ORIGINAL SIGNED AND PLACED IN CHART; COPY OF ORIGINAL DOCUMENT GIVEN TO PATIENT AT BEDSIDE AND PLACED IN CARE TRANSITION FOLDER. CM CONTACT INFORMATION GIVEN TO PATIENT FOR ANY NEEDS OR CONCERNS. PATIENT WITH NO FURTHER QUESTIONS.
[2018-10-10 12:48] LABS: ANION GAP 13.8 mmol/L (8-16); CALCIUM 8.8 mg/dL (8.4-10.2); CREATININE, SERUM 3.52 mg/dL (0.57-1.11); POTASSIUM 3.8 mmol/L (3.5-5.1)
[2018-10-10 12:54] LABS: CLARITY,URINE SL CLOUDY (CLEAR); COLOR,URINE YELLOW (YELLOW); LEUKOCYTE ESTERASE ,URINE 2+ (NEGATIVE); NITRITE,URINE NEGATIVE (NEGATIVE); PROTEIN,URINE DIPSTICK 1+ (NEGATIVE)
[2018-10-10 12:55] LABS: BILIRUBIN,URINE NEGATIVE (NEGATIVE); KETONES,URINE NEGATIVE (NEGATIVE); URINE UROBILINOGEN 0.2 mg/dL (0.2 - 1)
[2018-10-10] MEDS: SODIUM CHLORIDE 0.9% 1000ML 1,000 ML IV ONE ×2 (12:55→13:22)
--- NOTE | 2018-10-10 13:12 | NUR ---
Patient refused NS bolus. Notified Dr. Giron.
--- NOTE | 2018-10-10 13:20 | NUR ---
Patient now agrees to go to [facility] , notified Dr. Giron. He has ordered for central line placement.
--- NOTE | 2018-10-10 13:45 | NUR ---
Patient is refusing continuous IV fluids and states she wants the fluids "discontinued" and the IV removed. She states she "will drink fluid" to help her kidneys. Patient was educated on the risks of not receiving the IV fluids and that fluids by mouth is not sufficient. She continues to refuse. Will notify Dr. Giron.
--- NOTE | 2018-10-10 13:45 | NUR ---
Called Dr. Girno to notify him patient is wanting IV removed and wants continuous IV fluids stopped. No answer
[2018-10-10 13:59] LABS: ANISOCYTOSIS SLIGHT; EOSINOPHILS % (MANUAL) 7 % (0-7); HYPOCHROMASIA SLIGHT; LYMPHOCYTES % (MANUAL) 23 % (19-48); MONOCYTES % (MANUAL) 9 % (3.4-9.0); NEUTROPHILS % (MANUAL) 59 % (40-74); PLATELET ESTIMATE ADEQUATE; PLATELET MORPHOLOGY COMMENT NORMAL; RBC MORPHOLOGY COMMENT NORMAL
--- NOTE | 2018-10-10 14:10 | NUR ---
Dr. Giron returned call. Notified him that patient is refusing continuous IV fluids and does not want any IV access at all. He spoke to the patient by telephone she now states, "I am not urinating". She agrees to continue with IV fluids after Dr. Giron says he will order klein catheter. I did notify Dr. Giron, patient has urinated estimate of 700ml measured so far today.
--- NOTE | 2018-10-10 15:00 | NUR ---
Patient has removed peripheral IV on her own, stating that the nurse was supposed to remove it. Patient is reusing central line placement, peripheral IV placement, all IV fluids. I explained to her with case management as well that these are the doctors recommendations. She says she "will drink fluid by mouth", we explained that she does have the right to refuse treatment recommended by MD but if she does refuse treatment as recommended by MD she will not meet criteria to transfer to another facility. She was educated on leaving AMA, continuing with treatment recommended by MD. Final result, patient will agree to another peripheral IV, to received fluids and have klein catheter placed.
--- NOTE | 2018-10-10 15:33 | NUR ---
CM AND BEDSIDE RN CAMILA SPOKE TO PATIENT AT BEDSIDE REGARDING PLAN OF CARE AND DISCHARGE PLAN. PATIENT INFORMED THAT SHE IS HAVING AN INCREASE IN HER KIDNEY FUNCTION LABS AND THE MD HAS ORDERED IVF. PATIENT AGREED TO HAVE PERIPHERAL LINE PLACED AND RECEIVE IVF FOR HYDRATION. PATIENT REFUSED CENTRAL LINE AND REQUESTED A GAMING BE PLACED BECAUSE SHE " IS NOT EMPTYING BLADDER FULLY". MD ORDERED GAMING PLACEMENT. CM REITERATED PLAN: PATIENT TO RECEIVE PERIPHERAL LINE TO RECEIVE IVF FOR HYDRATION AND GAMING CATHETER TO HELP WITH EMPTYING. PATIENT WILL BE DISCHARGING TO [facility] UPON ACCEPTANCE. PATIENT VERBALLY AGREED. PATIENT WITH NO FURTHER QUESTIONS AT THIS TIME. CM AND BEDSIDE RN CAMILA LEAVE ROOM.
--- NOTE | 2018-10-10 15:45 | NUR ---
Notified Dr. Giron that patient has refused central line
--- NOTE | 2018-10-10 17:30 | NUR ---
18f klein catheter inserted per MD leonard
--- NOTE | 2018-10-10 17:35 | NUR ---
Wound care done to left lower extremity
--- NOTE | 2018-10-10 19:28 | NUR ---
Patient received lying in bed. AAO x 4. Patient had no complaints of pain. Respirations even and non-labored. Telemetry in place. Baum catheter draining clear pale yellow urine. Fall precautions implemented. Patient instructed to call for assistance when needed. Call light within reach.
[2018-10-10] MEDS: ATORVASTATIN 20 MG TAB PO SCH (21:45)
[2018-10-11] VITALS (8 sets, daily range): BP systolic 133–168; BP diastolic 57–68
--- NOTE | 2018-10-11 05:53 | NUR ---
IM- Progress note o/N no events ROS: no cp/sob/dizziness/vision changes/skin rash/back pain/GARBER v/s: rev'd PE: tired appearing anicteric ns1s2 mod bs soft nt nd right BKA left foreleg erythematous/edematous/tender/warm; chronic changes of great toe skin dry flat affect A&OX3; [facility] labs/meds; revd A/P: 73yoF Cellulitis of left leg DM2 HTN PAD PLAN IV abx U/S of leg lovenox cardio eval hab1c/LDL 10.3/129 ADA diet ppi on AC Uncontrolled DM2; CLEMENTINA - d/c losartan; and Hypokalemia- replace; ; Obesity BMI 35.4 f/u vascular studies; check BMP s/p venogram; alteplase/heparin infusion; heavy load left leg thrombus. 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 s/p tPA infusion and throbectomy; s/p IVC filter placement; SNF eval LTAC eval per pt request; Vanco therapeutic; check labs soon. Denies LTAC; SNF pending; 10/10 CLEMENTINA- vanc already discontinued; cont IVF; bolus 1L; UA; will resolve slowly; mgmt can be continued at SNF. 10/11 s/p IVC filter placement; cont IVF; f/u labs; Pt has been refusing IVF, now finally agreeing; needs to f/u renal fn. Miguel Giron MD, PhD
--- NOTE | 2018-10-11 06:26 | NUR ---
Dr. Benedict Giron here to see patient. New orders received.
[2018-10-11] MEDS ORDERED: SODIUM CHLORIDE 0.9% 1000ML 1,000 ML IV ONE (06:45)
[2018-10-11 06:50] LABS: ANION GAP 11.1 mmol/L (8-16); CALCIUM 8.6 mg/dL (8.4-10.2); CREATININE, SERUM 3.57 mg/dL (0.57-1.11); POTASSIUM 4.1 mmol/L (3.5-5.1)
[2018-10-11] MEDS: INSULIN LISPRO 100 UNIT/1 ML 3ML VIAL SQ SCH ×4 (07:30→20:37)
--- NOTE | 2018-10-11 07:38 | NUR ---
Walking rounds done. Shift report given to oncoming nurse.
[2018-10-11] MEDS: AMLODIPINE BESYLATE 10 MG TAB PO SCH (08:59)
[2018-10-11] MEDS: SODIUM CHLORIDE 0.9% 1000ML 1,000 ML IV SCH ×2 (08:59→16:30)
[2018-10-11] MEDS: DOCUSATE SODIUM 100 MG CAP PO SCH ×2 (08:59→16:49)
[2018-10-11] MEDS: RIVAROXABAN 15 MG TABLET PO SCH ×2 (08:59→16:49)
[2018-10-11] MEDS: INSULIN GLARGINE 100 UNITS/ML VIAL SQ SCH (08:59)
[2018-10-11] MEDS: SENNA-S TABLET PO SCH ×2 (08:59→16:50)
[2018-10-11] MEDS: SENNOSIDES 8.6 MG TAB PO SCH (09:00)
--- NOTE | 2018-10-11 15:38 | Progress Note ---
DATE: 10/11/2018 Cardiology Progress Note SUBJECTIVE: The patient is overall feeling well. Denies any chest pain or shortness of breath. OBJECTIVE: VITAL SIGNS: Temperature is 98.3, heart rate is 69, respirations 18, blood pressure is 133/57, and oxygen saturation 99% on room air. GENERAL: Well appearing, well built, in no apparent distress. CARDIOVASCULAR: Regular rate and rhythm. LUNGS: Clear to auscultation. ABDOMEN: Soft, nontender, and nondistended. EXTREMITIES: Left lower extremity swelling with a bandage. Right BKA. LABORATORY DATA: Reviewed. Hemoglobin 8. Creatinine is 3.57. IMPRESSION: 1. Deep venous thrombosis, status post intervention, inferior vena cava filter placement. 2. Peripheral arterial disease. 3. Hyperlipidemia. 4. Hypertension. 5. Obesity. 6. Diabetes mellitus. 7. Lower extremity wound. 8. Acute kidney injury. RECOMMENDATIONS: Continue current anticoagulation for left DVT. Her IVC filter placement will need to be removed at a later date. Continue fluids for acute kidney injury. Avoid nephrotoxic agents. Continue amlodipine for blood pressure control. If needed for hypertension, can start hydralazine. Ignacio Jon DO BM/MODL /[id number]
--- NOTE | 2018-10-11 19:00 | NUR ---
received report from day nurse. patient is resting comfortably in bed. patient reports pain in lower extremities and is requesting pain medications. respirations are even and unlabored. IV fluids are running. Call coon is within reach. will continue to monitor patient.
[2018-10-11] MEDS: ATORVASTATIN 20 MG TAB PO SCH (20:36)
[2018-10-11] MEDS: ACETAMINOPHEN 325 MG TAB PO PRN (20:37)
[2018-10-12] VITALS (8 sets, daily range): BP systolic 128–172; BP diastolic 60–84
--- NOTE | 2018-10-12 04:25 | NUR ---
patients blood pressure has been re-assessed and found to be 143/60. will continue to monitor patients blood pressure.
[2018-10-12] MEDS: SODIUM CHLORIDE 0.9% 1000ML 1,000 ML IV SCH ×3 (06:30→20:47)
[2018-10-12 06:38] LABS: ANION GAP 9.9 mmol/L (8-16); CALCIUM 8.3 mg/dL (8.4-10.2); CREATININE, SERUM 3.11 mg/dL (0.57-1.11); POTASSIUM 3.9 mmol/L (3.5-5.1)
--- NOTE | 2018-10-12 06:57 | NUR ---
report given to day nurse. patient is resting comfortably in bed. bed is in lowest position and call coon is within reach.
--- NOTE | 2018-10-12 07:34 | NUR ---
IM- Progress note o/N no events ROS: no cp/sob/dizziness/vision changes/skin rash/back pain/GARBER v/s: rev'd PE: tired appearing anicteric ns1s2 mod bs soft nt nd right BKA left foreleg erythematous/edematous/tender/warm; chronic changes of great toe skin dry flat affect A&OX3; whitaker labs/meds; revd A/P: 73yoF Cellulitis of left leg DM2 HTN PAD PLAN IV abx U/S of leg lovenox cardio eval hab1c/LDL 10.3/129 ADA diet ppi on AC Uncontrolled DM2; CLEMENTINA - d/c losartan; and Hypokalemia- replace; ; Obesity BMI 35.4 f/u vascular studies; check BMP s/p venogram; alteplase/heparin infusion; heavy load left leg thrombus. 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 s/p tPA infusion and throbectomy; s/p IVC filter placement; SNF eval LTAC eval per pt request; Vanco therapeutic; check labs soon. Denies LTAC; SNF pending; 10/10 CLEMENTINA- vanc already discontinued; cont IVF; bolus 1L; UA; will resolve slowly; mgmt can be continued at SNF. 10/11 s/p IVC filter placement; cont IVF; f/u labs; Pt has been refusing IVF, now finally agreeing; needs to f/u renal fn. 10/12 bolus fluids fu lab tomorrow; Miguel Giron MD, PhD
[2018-10-12] MEDS ORDERED: SODIUM CHLORIDE 0.9% 1000ML 1,000 ML IV ONE ×2 (07:45→16:00)
[2018-10-12] MEDS: INSULIN LISPRO 100 UNIT/1 ML 3ML VIAL SQ SCH ×4 (08:44→21:00)
[2018-10-12] MEDS: DOCUSATE SODIUM 100 MG CAP PO SCH ×2 (08:44→17:09)
[2018-10-12] MEDS: SENNA-S TABLET PO SCH ×2 (08:44→17:09)
[2018-10-12] MEDS: RIVAROXABAN 15 MG TABLET PO SCH ×2 (08:44→17:09)
[2018-10-12] MEDS: INSULIN GLARGINE 100 UNITS/ML VIAL SQ SCH (08:44)
[2018-10-12] MEDS: NIFEDIPINE CR 30 MG TAB PO SCH ×2 (08:48→20:48)
[2018-10-12] MEDS: SENNOSIDES 8.6 MG TAB PO SCH (09:00)
--- NOTE | 2018-10-12 16:23 | Progress Note ---
DATE: 10/12/2018 Cardiology Progress Note SUBJECTIVE: The patient is sleeping comfortably. No chest pain or shortness of breath. Her left lower extremity feels better. OBJECTIVE: VITAL SIGNS: Temperature is 97.5, heart rate is 73, respirations are 19, blood pressure is 139/64, and oxygen saturation is 95% on room air. GENERAL: Well appearing, well built, no apparent distress. CARDIOVASCULAR: Regular rate and rhythm. LUNGS: Clear to auscultation bilaterally. ABDOMEN: Soft, nontender, nondistended. EXTREMITIES: Trace left lower extremity, right BKA. NEUROLOGIC: No focal deficits noted. LABORATORY DATA: Reviewed. Hemoglobin 8, creatinine 3.1, potassium 3.9. TELEMETRY: Monitoring revealed normal sinus rhythm. IMPRESSION: 1. Deep venous thrombosis, status post intervention and inferior vena cava filter placement. 2. Peripheral artery disease. 3. Hyperlipidemia. 4. Hypertension. 5. Obesity. 6. Diabetes mellitus. 7. Left lower extremity wound. 8. Acute kidney injury. RECOMMENDATIONS: Continue current anticoagulation for DVT with Xarelto 15 mg b.i.d. She has IVC filter in place for residual thrombus, will be removed at a later date. Continue fluids for acute kidney injury. Avoid nephrotoxic agents. Continue amlodipine for blood pressure control. If needed, consider hydralazine for additional antihypertensive agent. Ignacio Jon DO BM/MODL /[id number]
[2018-10-12] MEDS: SIMETHICONE 80 MG CHEW PO PRN (19:19)
--- NOTE | 2018-10-12 19:45 | NUR ---
Patient received sitting up in bed. AAO x 3. No complaints of pain. No signs of respiratory distress. IVF infusing at 125 cc/hr. Baum catheter draining pale yellow urine. Fall precautions implemented. Patient instructed to call for assistance when needed. Call light within reach.
[2018-10-12] MEDS: ATORVASTATIN 20 MG TAB PO SCH (20:48)
--- NOTE | 2018-10-12 21:43 | NUR ---
Patient expressed her desire to turn her IV fluids off. Patient stated " I feel overloaded with fluids". Dr. Giron notified. New order received to turn off continuous NS infusing at 125 cc/hr.
[2018-10-13] VITALS (8 sets, daily range): BP systolic 130–158; BP diastolic 59–67
[2018-10-13] MEDS: ACETAMINOPHEN 325 MG TAB PO PRN (00:21)
[2018-10-13 06:04] LABS: ANION GAP 11.8 mmol/L (8-16); CALCIUM 8.1 mg/dL (8.4-10.2); CREATININE, SERUM 2.71 mg/dL (0.57-1.11); POTASSIUM 3.8 mmol/L (3.5-5.1)
--- NOTE | 2018-10-13 06:38 | NUR ---
IM- Progress note o/N no events ROS: no cp/sob/dizziness/vision changes/skin rash/back pain/GARBER v/s: rev'd PE: tired appearing anicteric ns1s2 mod bs soft nt nd right BKA left foreleg erythematous/edematous/tender/warm; chronic changes of great toe skin dry flat affect A&OX3; whitaker labs/meds; revd A/P: 73yoF Cellulitis of left leg DM2 HTN PAD PLAN IV abx U/S of leg lovenox cardio eval hab1c/LDL 10.3/129 ADA diet ppi on AC Uncontrolled DM2; CLEMENTINA - d/c losartan; and Hypokalemia- replace; ; Obesity BMI 35.4 f/u vascular studies; check BMP s/p venogram; alteplase/heparin infusion; heavy load left leg thrombus. 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 s/p tPA infusion and throbectomy; s/p IVC filter placement; SNF eval LTAC eval per pt request; Vanco therapeutic; check labs soon. Denies LTAC; SNF pending; 10/10 CLEMENTINA- vanc already discontinued; cont IVF; bolus 1L; UA; will resolve slowly; mgmt can be continued at SNF. 10/11 s/p IVC filter placement; cont IVF; f/u labs; Pt has been refusing IVF, now finally agreeing; needs to f/u renal fn. 10/12 bolus fluids fu lab tomorrow; 10/13 renal fn continues to improve; bolus fluids now and later. SNF today if possible; Miguel Giron MD, PhD
--- NOTE | 2018-10-13 07:00 | NUR ---
Walking rounds done. Shift report given to oncoming nurse about patient's status.
--- NOTE | 2018-10-13 07:30 | NUR ---
REC'D PT AAOX3, PT HAS A RIGHT BKA, ON RA, AND HAS GAMING IN PLACE. NO S/S OF DISTRESS NOTED. SIDE RAILS UPX2, CALL PACHECO WITHIN REACH, AND BED IN LOWEST POSITION.
[2018-10-13] MEDS: INSULIN LISPRO 100 UNIT/1 ML 3ML VIAL SQ SCH ×3 (08:15→21:00)
[2018-10-13] MEDS: SENNA-S TABLET PO SCH ×2 (09:00→17:07)
[2018-10-13] MEDS: DOCUSATE SODIUM 100 MG CAP PO SCH ×2 (09:00→17:07)
[2018-10-13] MEDS: SENNOSIDES 8.6 MG TAB PO SCH (09:00)
[2018-10-13] MEDS: SIMETHICONE 80 MG CHEW PO PRN (09:10)
[2018-10-13] MEDS: NIFEDIPINE CR 30 MG TAB PO SCH ×2 (09:15→21:59)
[2018-10-13] MEDS: RIVAROXABAN 15 MG TABLET PO SCH ×2 (09:16→17:07)
[2018-10-13] MEDS: INSULIN GLARGINE 100 UNITS/ML VIAL SQ SCH (10:33)
--- NOTE | 2018-10-13 10:40 | NUR ---
FAXED UPDATED CLINICALS TO [facility] WAITING ON AUTH, COMPLETED RTF LEFT AT NURSES STATION WAITING ON ROOM AND DR WITH CHRISTINA
--- NOTE | 2018-10-13 12:08 | NUR ---
COMPLETED PASRR FAXED TO FACILITY AND PUT COPY ON CHART
--- NOTE | 2018-10-13 13:12 | Progress Note ---
DATE: 10/13/2018 Cardiology Progress Note SUBJECTIVE: No major events overnight. OBJECTIVE: VITAL SIGNS: Temperature afebrile, pulse 75, respiratory rate 19, blood pressure 151/67, and saturating 99% on room air. GENERAL: Elderly female, in no acute distress. CARDIOVASCULAR: Regular rate and rhythm. LUNGS: Clear to auscultation bilaterally. ABDOMEN: Soft, nontender, and nondistended. NEURO AND PSYCH: Alert and oriented to person, place, and time. Normal affect. LABORATORY DATA: Reviewed. INPATIENT MEDICATIONS: Reviewed. TELEMETRY DATA: Reviewed, shows normal sinus rhythm. ASSESSMENT AND PLAN: 1. Deep venous thrombosis, status post intervention and inferior vena cava filter placement. 2. Peripheral arterial disease. 3. Hyperlipidemia. 4. Hypertension. 5. Obesity. 6. Diabetes. 7. Left lower extremity wound. 8. Acute kidney injury. RECOMMENDATIONS: Continue current anticoagulation with Xarelto. IVC filter in place for residual thrombus. This will be removed at a later date once thrombus resolves. We will continue to monitor closely. MD CARYN Holder/STEVE /[id number]
--- NOTE | 2018-10-13 14:40 | NUR ---
Nutrition Screen Note RD Recommendation for Physician: -Consider cardiac, 1800 ADA diet per MD. Plan of Care: RD following, monitoring for tolerance and adequacy. Provided education. Nutrition reason for involvement: Follow up Primary Diagnose(s): Cellulitis PMH: peripheral arterial disease, status post multiple interventions leading to a right [id number]-[id number]-hvcy amputation, hypertension, diabetes mellitus, hyperlipidemia, obesity. Ht: 64 in Wt: 212 lb BMI: 36.8 kg/m2 IBW: [address] Assessment: (10/13) Pt seen for follow up. Pt discussed during am rounds, pending discharge tomorrow per case management. Pt reports good appetite and intake, noted 75-100% meal intake per chart. Pt denies any GI distress, LBM today and states constipation has resolved. Pt with no questions regarding diet education provided last week. Labs and meds reviewed. Chart reviewed. Will monitor and continue to follow. (10/06 ) 73 YOF admitted for cellulitis with PMH listed above. Pt stated her appetite was good when she entered the hospital but today it is somewhat poor, 50% of her breakfast tray was consumed so far at time of visit. Pt denied knowing of any recent weight loss. Pt stated she is trying to take it slow when is comes to eating. Pt denied N/V, stated she is on a stool softener for constipation but has not had a BM yet per pt, and denied any chewing or swallowing issues. Pt accepted information regarding DM and was educated on carb portions, food label and other healthy tips regarding DM. Pt had no further questions or concerns. Chart reviewed. Labs and meds reviewed. Will continue to monitor. Current Diet: ADA 1800 Malnutrition Evaluation (10/06) The patient does not meet criteria for a specified degree of malnutrition at this time. Will re-evaluate at follow-up as appropriate. Diet Education Needs Assessment: Diet education indicated, pt accepted education. Diet education provided 10/06/18. Learner(s): pt Barriers: n/a Cultural/Language Modifications: n/a Readiness: acceptance Method: discussion and handout Topics: DM diet Understanding/Compliance: verbalized understanding, anticipate fair compliance Nutrition Care Level: low Signed: Galina Duncan RD, LD, [facility]
--- NOTE | 2018-10-13 15:46 | NUR ---
FAXED ADDITIONAL INFORMATION TO FACILITY THAT WAS REQUESTED.
--- NOTE | 2018-10-13 17:45 | NUR ---
PT IS SITTING ON RECLINER CHAIR. NO S/S OF DISTRESS. CALL PACHECO WITHIN REACH.
--- NOTE | 2018-10-13 21:40 | NUR ---
PATIENT ASSISTED WITH ADLS, SHE'S ALSO ASSISTED TO BED. BED ALARM ON, WARM BLANKET PROVIDED FOR COMFORT. DRESSING CHANGE PROVIDED TO THE LEFT LEG.
[2018-10-13] MEDS: ATORVASTATIN 20 MG TAB PO SCH (21:59)
[2018-10-14] VITALS: BP 143/64
--- NOTE | 2018-10-14 01:10 | NUR ---
PATIENT IS ASLEEP, SHE'S EASY TO AROUSE. NO RESPIRATORY DISTRESS OBSERVED, BED ALARM ON AND CALL LIGHT WITHIN EASY REACH.
[2018-10-14 04:00] VITALS: BP 131/61
[2018-10-14 06:05] LABS: BASOPHILS # (AUTO) 0.1 (0.0-0.1); BASOPHILS % 0.7 % (0.0-1.0); EOSINOPHILS # (AUTO) 0.3 (0.0-0.4); EOSINOPHILS % 4.5 % (0.0-6.0); HEMATOCRIT 24.7 % (34.2-44.1); HEMOGLOBIN 7.9 g/dL (12.0-16.0); LYMPHOCYTES # (AUTO) 1.4 (1.0-3.2); LYMPHOCYTES % 19.4 % (18.0-39.1); MEAN CORPUSCULAR HEMOGLOBIN 28.7 pg (28-32); MEAN CORPUSCULAR VOLUME 89.8 fL (81-99); MONOCYTES # (AUTO) 0.7 (0.2-0.8); MONOCYTES % 9.3 % (4.4-11.3); NEUTROPHILS # (AUTO) 4.9 (2.1-6.9); NEUTROPHILS % 65.7 % (38.7-80.0); PLATELET COUNT 308 x10e3/uL (140-360); RED BLOOD COUNT 2.75 x10e6/uL (3.6-5.1); RED CELL DISTRIBUTION WIDTH 15.9 % (11.7-14.4)
[2018-10-14 06:06] LABS: ANION GAP 9.6 mmol/L (8-16); CALCIUM 8.3 mg/dL (8.4-10.2); CREATININE, SERUM 2.82 mg/dL (0.57-1.11); POTASSIUM 3.6 mmol/L (3.5-5.1)
--- NOTE | 2018-10-14 06:23 | NUR ---
IM- Progress note o/N no events ROS: no cp/sob/dizziness/vision changes/skin rash/back pain/GABRER v/s: rev'd PE: tired appearing anicteric ns1s2 mod bs soft nt nd right BKA left foreleg erythematous/edematous/tender/warm; chronic changes of great toe skin dry flat affect A&OX3; [facility]aker labs/meds; revd A/P: 73yoF Cellulitis of left leg DM2 HTN PAD PLAN IV abx U/S of leg lovenox cardio eval hab1c/LDL 10.3/129 ADA diet ppi on AC Uncontrolled DM2; CLEMENTINA - d/c losartan; and Hypokalemia- replace; ; Obesity BMI 35.4 f/u vascular studies; check BMP s/p venogram; alteplase/heparin infusion; heavy load left leg thrombus. 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 s/p tPA infusion and throbectomy; s/p IVC filter placement; SNF eval LTAC eval per pt request; Vanco therapeutic; check labs soon. Denies LTAC; SNF pending; 10/10 CLEMENTINA- vanc already discontinued; cont IVF; bolus 1L; UA; will resolve slowly; mgmt can be continued at SNF. 10/11 s/p IVC filter placement; cont IVF; f/u labs; Pt has been refusing IVF, now finally agreeing; needs to f/u renal fn. 10/12 bolus fluids fu lab tomorrow; 10/13 renal fn continues to improve; bolus fluids now and later. SNF today if possible; 10/14 f/u labs. Pt continues to REFUSE IVF for treatment of renal dysfunction. SNF when approved. Miguel Giron MD, PhD
[2018-10-14 07:30] VITALS: BP 142/63
[2018-10-14] MEDS: INSULIN LISPRO 100 UNIT/1 ML 3ML VIAL SQ SCH ×2 (07:30→11:30)
--- NOTE | 2018-10-14 07:30 | NUR ---
REC'D PT AAOX3, ON RA, SEMI-GALLAGHER'S POSITION, 16 F GAMING HANGED BELOW THE BLADDER NOT TOUCHING THE FLOOR. NO S/S OF DISTRESS. CALL PACHECO WITHIN REACH, BED IN LOWEST POSITION, AND SIDE RAILS UP X2. PROSTHETIC LEG FOR RIGHT EXTREMITY AT BEDSIDE.
--- NOTE | 2018-10-14 08:11 | NUR ---
FACILITY CALLED AND REQUESTED MORE PT NOTES, FAXED TO [phone]
[2018-10-14] MEDS: INSULIN GLARGINE 100 UNITS/ML VIAL SQ SCH (08:30)
[2018-10-14 08:40] VITALS: BP 142/63
[2018-10-14] MEDS: RIVAROXABAN 15 MG TABLET PO SCH (09:39)
[2018-10-14] MEDS: DOCUSATE SODIUM 100 MG CAP PO SCH (09:39)
[2018-10-14] MEDS: SENNOSIDES 8.6 MG TAB PO SCH (09:39)
[2018-10-14] MEDS: SENNA-S TABLET PO SCH (09:39)
[2018-10-14] MEDS: NIFEDIPINE CR 30 MG TAB PO SCH (09:40)
[2018-10-14 11:58] VITALS: BP 145/63
--- NOTE | 2018-10-14 13:37 | NUR ---
PT ACCEPTED TO [facility] [id number], [place] [address], [address] [facility]X CARE CALL REPORT TO [phone]
--- NOTE | 2018-10-14 14:00 | NUR ---
PT TO BE DISCHARGED TO [facility]. AMBULANCE CALLED AND PAPERWORK REVIEWED. IV REMOVED TO RIGHT WRIST. NO COMPLICATIONS TO IV SITE.
[2018-10-14 15:30] VITALS: BP 131/63
--- NOTE | 2018-10-14 16:35 | NUR ---
PT IV HAS BEEN REMOVED AND NO COMPLICATIONS TO SITE. TELE HAS BEEN REMOVED AND NOTIFIED BEFORE REMOVING. PT APPLIED ON 2L/MIN OF NC FOR SOB AFTER TRANSFERRING FROM CHAIR TO [facility]. NO S/S OF DISTRESS. AMBULANCE TRANSFERRED PT TO [facility].
--- NOTE | 2018-10-15 07:13 | NUR ---
Discharge Summary Principal Dx: Cellulitis of left leg PAD CLEMENTINA Hypokalemia Secondary Dx: DM2 HTN Obesity BMI 35.4 PLAN IV abx U/S of leg lovenox cardio eval hab1c/LDL 10.3/129 ADA diet ppi on AC Uncontrolled DM2; CLEMENTINA - d/c losartan; and Hypokalemia- replace; ; Obesity BMI 35.4 f/u vascular studies; check BMP s/p venogram; alteplase/heparin infusion; heavy load left leg thrombus. 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 s/p tPA infusion and throbectomy; s/p IVC filter placement; SNF eval LTAC eval per pt request; Vanco therapeutic; check labs soon. Denies LTAC; SNF pending; 10/10 CLEMENTINA- vanc already discontinued; cont IVF; bolus 1L; UA; will resolve slowly; mgmt can be continued at [facility]. 10/11 s/p IVC filter placement; cont IVF; f/u labs; Pt has been refusing IVF, now finally agreeing; needs to f/u renal fn. 10/12 bolus fluids fu lab tomorrow; 10/13 renal fn continues to improve; bolus fluids now and later. SNF today if possible; 10/14 f/u labs. Pt continues to REFUSE IVF for treatment of renal dysfunction. [facility] when approved. d/c to SNF [facility] f/u pcp 1 week stable d/c>35mins Miguel Giron MD, PhD
--- NOTE | 2018-10-17 10:08 | Progress Note ---
DATE: 10/14/2018 Cardiology Progress Note SUBJECTIVE: No major events overnight. Feeling a little depressed today. OBJECTIVE: VITAL SIGNS: Temperature afebrile, pulse 74, respiratory rate 19, blood pressure 131/63, and saturating 96% on room air. GENERAL: An elderly female, in no acute distress. CARDIOVASCULAR: Regular rate and rhythm. No murmurs, rubs, or gallops. LUNGS: Clear to auscultation bilaterally. ABDOMEN: Soft, nontender, nondistended. NEURO AND PSYCH: Alert and oriented to person, place, and time. Normal affect. LABORATORY DATA: Reviewed. INPATIENT MEDICATIONS: Reviewed. TELEMETRY DATA: Reviewed. ASSESSMENT AND PLAN: 1. Deep venous thrombosis, status post intervention. Inferior vena cava filter. 2. Peripheral arterial disease. 3. Hyperlipidemia. 4. Hypertension. 5. Obesity. 6. Diabetes. 7. Left lower extremity wound. 8. Acute kidney injury. RECOMMENDATIONS: Continue anticoagulation with Xarelto. IVC filter in place for residual thrombus, this will be removed at a later date by Dr. Jon. Follow up in clinic 2 weeks post hospitalization with Dr. Jon. Has dopplerable pulse in the left foot. Continue wound care per primary team for left lower extremity wounds. Thank you for this consult. We will continue to follow. MD TORIE HolderP/MODL /[id number]
== END 2018-10-14 16:43 | DRG 271 ==
LOC: ER 08:35 → ERHOLD 10:45 → MED/SURG3 13:55 → ICU 10-01 15:43 → MED/SURG2 10-05 09:44
PROVIDERS: ADMIT Internal Medicine; ATTEND Internal Medicine
PROC: 06C03ZZ Extirpation of Matter from Inferior Vena Cava, Percutaneous Approach (ICD-10-PCS; principal; 2018-10-01)
PROC: 3E03317 Introduction of Other Thrombolytic into Peripheral Vein, Percutaneous Approach (ICD-10-PCS; 2018-10-01)
PROC: 06H03DZ Insertion of Intraluminal Device into Inferior Vena Cava, Percutaneous Approach (ICD-10-PCS; 2018-10-02)
PROC: B51C1ZZ Fluoroscopy of Left Lower Extremity Veins using Low Osmolar Contrast (ICD-10-PCS; 2018-10-02)
PROC: 067D3ZZ Dilation of Left Common Iliac Vein, Percutaneous Approach (ICD-10-PCS; 2018-10-03)
PROC: 06CD3ZZ Extirpation of Matter from Left Common Iliac Vein, Percutaneous Approach (ICD-10-PCS; 2018-10-03)
PROC: B51C1ZZ Fluoroscopy of Left Lower Extremity Veins using Low Osmolar Contrast (ICD-10-PCS; 2018-10-03)
DX: I82.422 Acute embolism and thrombosis of left iliac vein (principal); L03.116 Cellulitis of left lower limb; N17.9 Acute kidney failure, unspecified; L97.821 Non-pressure chronic ulcer of other part of left lower leg limited to breakdown of skin; I10 Essential (primary) hypertension; Z89.511 Acquired absence of right leg below knee; Z82.49 Family history of ischemic heart disease and other diseases of the circulatory system; E78.5 Hyperlipidemia, unspecified; I82.412 Acute embolism and thrombosis of left femoral vein; E66.9 Obesity, unspecified; Z90.49 Acquired absence of other specified parts of digestive tract; Z68.35 Body mass index [BMI] 35.0-35.9, adult; E87.6 Hypokalemia; E11.65 Type 2 diabetes mellitus with hyperglycemia; E11.51 Type 2 diabetes mellitus with diabetic peripheral angiopathy without gangrene; I83.028 Varicose veins of left lower extremity with ulcer other part of lower leg; Z79.4 Long term (current) use of insulin
CPT/HCPCS: 36010; 36012; 36415; 37187; 37191; 37212; 37213; 37248; 71045; 75820; 80048; 80053; 80061; 80202; 81001; 81003; 82550; 82553; 82948; 83036; 83605; 83735; 83880; 84484; 85025; 85384; 85610; 85730; 87040; 87086; 90471; 90714; 90732; 93005; 93306; 93971; 96372; 97139; 99284; C1725; C1757; C1766; C1769; J0360; J1644; J1650; J1815; J1940; J2001; J2250; J2543; J2997; J3370; J7030; J7050; Q9967

== ENCOUNTER 2022-08-06 18:23 | Emergency (ER) | payer MEDICARE ==
[~2022-08-06] VITALS: Ht 162.6 cm; Wt 108.4 kg
[~2022-08-06 18:23] MED LIST: AMLODIPINE BESY10 MG PO; CLINDAMYCIN HC300 MG PO; COLACE100 MG PO; COZAAR100 MG PO; LEVEMIR100 UNIT/1 SQ; LIPITOR20 MG PO; SENNA S TABLET1 EACH PO; SIMETHICONE80 MG PO
[2022-08-06 19:16] LABS: BASOPHILS % 0.5 % (0.0-1.0); EOSINOPHILS # (AUTO) 0.5 (0.0-0.4); EOSINOPHILS % 8.3 % (0.0-6.0); HEMATOCRIT 34.9 % (34.2-44.1); HEMOGLOBIN 11.3 g/dL (12.0-16.0); LYMPHOCYTES # (AUTO) 2.2 (1.0-3.2); LYMPHOCYTES % 38.5 % (18.0-39.1); MEAN CORPUSCULAR HGB CONC 32.4 g/dL (31-35); MEAN CORPUSCULAR VOLUME 86.4 fL (81-99); MONOCYTES # (AUTO) 0.4 (0.2-0.8); MONOCYTES % 7.1 % (4.4-11.3); NEUTROPHILS # (AUTO) 2.6 (2.1-6.9); NEUTROPHILS % 45.4 % (38.7-80.0); PLATELET COUNT 144 x10e3/uL (140-360); RED BLOOD COUNT 4.04 x10e6/uL (3.6-5.1)
[2022-08-06 19:37] LABS: ALBUMIN 3.1 g/dL (3.5-5.0); ALBUMIN/GLOBULIN RATIO 0.9 (0.8-2.0); CALCIUM 8.1 mg/dL (8.4-10.2); CREATININE, SERUM 1.09 mg/dL (0.57-1.11)
[2022-08-06] MEDS ORDERED: SODIUM CHLORIDE 0.9% 1000ML 1,000 ML IV ONE (19:45)
[2022-08-06] MEDS ORDERED: INSULIN REGULAR, HUMAN 100 UNIT/1 ML SQ ONE (19:45)
[2022-08-06 19:55] LABS: CLARITY,URINE CLEAR (CLEAR); COLOR,URINE YELLOW (YELLOW)
[2022-08-06 19:56] LABS: KETONES,URINE NEGATIVE (NEGATIVE); LEUKOCYTE ESTERASE ,URINE NEGATIVE (NEGATIVE); NITRITE,URINE NEGATIVE (NEGATIVE); PROTEIN,URINE DIPSTICK 2+ (NEGATIVE); URINE UROBILINOGEN 0.2 mg/dL (0.2 - 1)
[2022-08-06] MEDS ORDERED: CEFTRIAXONE 1 GM VIAL ONE (19:56)
[2022-08-06 20:00] LABS: BACTERIA,URINE MODERATE /HPF; EPITHELIAL CELLS,URINE FEW /LPF; RBC,URINE 0-5 /HPF (0-5)
[2022-08-06] MEDS ORDERED: CEFDINIR300 MG PO (21:12)
[2022-08-06 22:48] VITALS: BP 159/62
== END 2022-08-06 23:40 | disposition home or self-care (01) ==
LOC: ER 18:32
DX: N39.0 Urinary tract infection, site not specified (principal); E11.65 Type 2 diabetes mellitus with hyperglycemia; I10 Essential (primary) hypertension; Z89.511 Acquired absence of right leg below knee
CPT/HCPCS: 36415; 80053; 81001; 82948; 85025; 87086; 87186; 99284; J0696; J1817; J7030

== ENCOUNTER 2024-03-04 23:42 | Emergency (ER) | payer MEDICARE ==
[~2024-03-04] VITALS: Ht 162.6 cm; Wt 93.4 kg
[~2024-03-04 23:42] MED LIST changes: +CEFDINIR300 MG PO; +CEPHALEXIN500 MG PO; +DOXYCYCLINE HY100 MG PO; +LASIX20 MG PO; +LISINOPRIL10 MG PO
[2024-03-05 00:46] LABS: BASOPHILS % 0.4 % (0.0-1.0); EOSINOPHILS # (AUTO) 0.3 (0.0-0.4); EOSINOPHILS % 3.6 % (0.0-6.0); HEMATOCRIT 37.2 % (34.2-44.1); HEMOGLOBIN 11.8 g/dL (12.0-16.0); LYMPHOCYTES # (AUTO) 1.3 (1.0-3.2); LYMPHOCYTES % 15.3 % (18.0-39.1); MEAN CORPUSCULAR HEMOGLOBIN 28.1 pg (28-32); MEAN CORPUSCULAR HGB CONC 31.7 g/dL (31-35); MEAN CORPUSCULAR VOLUME 88.6 fL (81-99); MONOCYTES # (AUTO) 0.9 (0.2-0.8); MONOCYTES % 10.5 % (4.4-11.3); NEUTROPHILS # (AUTO) 5.7 (2.1-6.9); NEUTROPHILS % 69.8 % (38.7-80.0); PLATELET COUNT 104 x10e3/uL (140-360); RED CELL DISTRIBUTION WIDTH 14.5 % (11.7-14.4); WHITE BLOOD COUNT 8.16 x10e3/uL (4.8-10.8)
[2024-03-05 01:02] LABS: ALANINE AMINOTRANSFERASE 19 IU/L (0-55); ALBUMIN 3.1 g/dL (3.5-5.0); ALBUMIN/GLOBULIN RATIO 0.8 (0.8-2.0); ALKALINE PHOSPHATASE 89 IU/L (40-150); ANION GAP 14.2 mmol/L (8-16); BILIRUBIN,TOTAL 0.7 mg/dL (0.2-1.2); BLOOD UREA NITROGEN 18 mg/dL (7-26); BUN/CREATININE RATIO 14 (6-25); CALCIUM 8.3 mg/dL (8.4-10.2); CARBON DIOXIDE 22 mmol/L (22-29); CHLORIDE 101 mmol/L (98-107); CREATINE KINASE 60 IU/L (29-168); CREATININE, SERUM 1.27 mg/dL (0.57-1.11); EST GLOMERULAR FILTRATION RATE 43 ML/MIN (>=60); GLUCOSE 269 mg/dL (74-118); POTASSIUM 4.2 mmol/L (3.5-5.1); SODIUM 133 mmol/L (136-145)
[2024-03-05] MEDS ORDERED: IOPAMIDOL 370 MG/ML 100 ML INFUS..BTL INJ ONE (01:21)
[2024-03-05 01:30] LABS: TROPONIN I < 0.05 ng/mL (0.0-0.40)
[2024-03-05] MEDS: SODIUM CHLORIDE 0.9% 500ML 500 ML IV ONE (01:30)
[2024-03-05 06:01] VITALS: TEMP 98.4
[2024-03-05] MEDS: ASPIRIN 325 MG TAB PO ONE (06:27)
[2024-03-05 07:20] VITALS: PULSE 84; RESP 16; O2SAT 98
== END 2024-03-05 07:29 | disposition other institution (70) ==
LOC: ER 03-05 00:14
DX: M62.81 Muscle weakness (generalized) (principal); R29.704 NIHSS score 4; E11.65 Type 2 diabetes mellitus with hyperglycemia; I10 Essential (primary) hypertension; E78.5 Hyperlipidemia, unspecified; Z89.511 Acquired absence of right leg below knee; R94.31 Abnormal electrocardiogram [ECG] [EKG]
CPT/HCPCS: 36415; 70450; 70496; 70498; 80053; 82550; 84484; 85025; 93005; 99285; J7040; Q9967